=== PATIENT | male | born 1940 | race Caucasian/White ===

== ENCOUNTER 2018-01-22 07:59 | Inpatient (IN) | payer MEDICARE ==
--- NOTE | 2018-01-09 15:03 | HP ---
AMENDED REPORT NOW INCLUDES COSIGNER DESIGNAION - ESIGNED BEFORE ADJUSTMENTS HISTORY AND PHYSICAL: DATE OF SURGERY: 01/22/18 DATE OF HISTORY AND PHYSICAL: 01/09/18 SURGEON: Dr. Maame Shook.* (DICTATED BY KENNETH HOPPER) PROCEDURE: Right total hip arthroplasty. CHIEF COMPLAINT: Right hip pain. HISTORY OF PRESENT ILLNESS: Mr. Hull is a 77-year-old gentleman with severe endstage arthritis in the right hip. He has failed conservative treatment with antiinflammatories, pain medication, intraarticular injection, and physical therapy. He would like to proceed with a right total hip arthroplasty and has discussed the procedure in the past with Dr. Shook. He follows up today for a history and physical for the same. He has been cleared by his neurologist as he has Parkinson's disease and he has also been cleared by his PCP pending his cardiology clearance. Cardiology has done an echocardiogram as well as an EKG and he is scheduled for a stress test on 01/15/18 for cardiac clearance. When we receive this information, he will be officially cleared. PAST MEDICAL HISTORY: Right hip osteoarthritis, Parkinson disease, hypertension , hyperlipidemia, dyspnea, aortic valve stenosis, CAD with two stents, dysphagia , GERD, and erectile dysfunction. PAST SURGICAL HISTORY: Includes stenting x2, cataract surgery and bursal I and D x2. MEDICATIONS: 1. Vitamin B12 at 1000 mcg daily. 2. Ferrous gluconate 240 mg daily. 3. Atorvastatin 80 mg half a tablet daily. 4. Triamcinolone acetonide 0.1% b.i.d. 5. Aspirin 81 mg daily. 6. Pramipexole hydrochloride 1 mg t.i.d. 7. Clopidogrel 75 mg daily. 8. Amantadine HCl 15 mg/5 mL 1 teaspoon daily. 9. Isosorbide mononitrate ER 60 mg daily. 10. Carbidopa/levodopa/entacapone 25/100/200 mg 1 t.i.d. 11. Multivitamin. 12. Nitrostat 0.4 mg 1 sublingual as need for chest pain. 13. Furosemide 20 mg daily. 14. Klor-Con 10 mEq every day. 15. Gabapentin 300 mg 2 tabs by mouth at night. 16. Carbidopa/levodopa ER 25/100 mg 1 tablet at night for restless leg syndrome. 17. Pantoprazole sodium 40 mg twice daily. 18. Oxycodone/acetaminophen 5/325 one to two tablets every 8 hours as needed for pain. 19. Dulcolax 100 mg twice daily as needed for constipation. ALLERGIES: SULFA medication and HYDROCHLOROTHIAZIDE. FAMILY HISTORY: Father with prostate cancer, [place], hyperlipidemia, and hypertension. Mother with hypertension. SOCIAL HISTORY: He is a nonsmoker, never smoker. He drinks alcohol socially and he denies any illicit drug use. REVIEW OF SYSTEMS: Patient endorses his presenting complaint as outlined in the HPI as well as numbness at the tips of his fingers on occasion, otherwise a 12- point system review was grossly negative. PHYSICAL EXAMINATION GENERAL: Well-nourished, well-developed, in no acute distress, alert and oriented x3. He has some difficulty sitting still. He is ambulating with the use of a walker. VITAL SIGNS: Height 69 inches, weight 173 pounds. Pulse 94, blood pressure sitting 118/70, respirations 16, temperature 98.3, BMI 25.5. HEENT: Normocephalic, atraumatic. Pupils equally round and reactive to light and accommodation. Extraocular movements intact. NECK: Supple. No palpable cervical lymph nodes. Thyroid is smooth and nontender. PULMONARY: Lungs clear to auscultation bilaterally with no wheezes, rales or rhonchi. CARDIAC: Regular rate and rhythm with a notable S1 murmur. 2+ DP pulses bilaterally. MUSCULOSKELETAL: Right lower extremity, patient's skin is intact with no abrasions or open wounds. He has no tenderness to palpation of the hip. No masses or lymph nodes. Hip flexion to 90 degrees with severe groin pain, internal rotation to 0 degrees, external rotation to 20 degrees with pain in the groin. He can actively flex and abduct through this and has 4/5 strength with flexion and abduction. Distally no edema or varicosities, there is 5/5 dorsiflexion and plantarflexion which is equal bilaterally. Full sensation to light touch in all nerve distributions, 2+ palpable DP pulse. LABORATORY DATA: No new x-rays were obtained today. IMPRESSION: Severe endstage osteoarthritis of the right hip. PLAN/RECOMMENDATIONS: Mr. Hull is scheduled to undergo a right total hip replacement with Dr. Maame Shook on 01/22/18 pending clearance from his personal secretary. He will return to clinic 14 days postop for followup and suture removal. Prescription for pain medication will be prescribed to patient's pharmacy on record on discharge from hospital. He will use Coumadin for DVT prophylaxis. We discussed today that he would need to discuss with this personal secretary when to stop his Plavix as well as his aspirin and he will have the personal secretary reach out to us and let us know about this. All questions were answered today. KENNETH HOPPER [id number]/[facility] #: [id number] DIMITRIOS
[~2018-01-22 07:59] MED LIST: Buffered Lidocaine 0.9% SYRIN* 5 ML/SYR SYRINGE INTRADERM ONE; Sodium Citrate/Citric Acid* 15 ML UDC PO ONE
[2018-01-22] MEDS ORDERED: Sodium Citrate/Citric Acid* 15 ML UDC ONE (08:29)
[2018-01-22] MEDS ORDERED: ceFAZolin 2 GM PREMIX (*) 2 GM/50 ML BAG IVPB ONE (08:29)
[2018-01-22] MEDS ORDERED: fentaNYL* 50 MCG/ML 5 ML VIAL (250 MCG VIAL) ONE (10:09)
[2018-01-22] MEDS ORDERED: Phenylephrine INJ* 10 MG/ML 1 ML VIAL (10 MG) ONE (10:10)
[2018-01-22] MEDS ORDERED: Propofol* 10 MG/ML 20 ML BTL IV PUSH ONE (10:10)
[2018-01-22] MEDS ORDERED: Rocuronium* 10 MG/ML VIAL ONE (10:10)
[2018-01-22] MEDS ORDERED: Etomidate* 2 MG/ML 10 ML VIAL ONE (10:10)
[2018-01-22] MEDS ORDERED: EPHEDrine (Pressors)* 50 MG/ML VIAL ONE (10:10)
[2018-01-22] MEDS ORDERED: Naloxone* 0.4 MG/ML 1 ML VIAL IV PRN (10:14)
[2018-01-22] MEDS ORDERED: fentaNYL* 50 MCG/ML 2 ML VIAL (100 MCG VIAL) IV PRN (10:14)
[2018-01-22] MEDS ORDERED: Acetaminophen IV 1GM/100ML * 1,000 MG/100 ML VIAL IVPB ONE (10:14)
[2018-01-22] MEDS ORDERED: PROCHLORPERAZINE INJ 5 MG/ML 2 ML VIAL IV PRN (10:14)
[2018-01-22] MEDS ORDERED: Ondansetron INJ* 2 MG/ML VIAL IV PRN (10:14)
[2018-01-22] MEDS ORDERED: HYDROmorphone INJ* 1 MG/ML CARPUJECT SYRINGE IV PRN (10:14)
[2018-01-22] MEDS ORDERED: Glycopyrrolate IV* 0.2 MG/ML 1 ML VIAL ONE (12:41)
[2018-01-22] MEDS ORDERED: Neostigmine Methylsulfate* 1 MG/ML 10 ML VIAL (1 mg/ml) ONE (12:41)
[2018-01-22] MEDS ORDERED: Ketorolac INJ* 30 MG/ML 1 ML VIAL ONE (13:26)
[2018-01-22] MEDS ORDERED: Acetaminophen TAB* 325 MG PO PRN (13:41)
[2018-01-22] MEDS ORDERED: Ondansetron 40 MG VIAL* 2 MG/ML 20 ML VIAL IV PRN (13:41)
[2018-01-22] MEDS ORDERED: Bisacodyl SUPP* 10 MG SUPP PR PRN (13:41)
[2018-01-22] MEDS ORDERED: Polyethylene Glycol 3350* 17 GM PACKET PO PRN (13:41)
[2018-01-22] MEDS ORDERED: oxyCODONE TAB* 5 MG TAB PO PRN ×2 (13:41→18:51)
[2018-01-22] MEDS ORDERED: Cyclobenzaprine TAB* 10 MG PO PRN (13:41)
[2018-01-22] MEDS ORDERED: Ondansetron TAB* 4 MG PO PRN (13:41)
[2018-01-22] MEDS ORDERED: oxyCODONE/Acetamin 5/325 MG* TAB PO PRN ×2 (13:41)
[2018-01-22] MEDS ORDERED: Magnesium Hydroxide LIQ* 30 ML UDC PO PRN (13:41)
[2018-01-22] MEDS ORDERED: diPHENhydraMINE IV* 50 MG/ML 1 ml VIAL (BENADRYL) IV PRN (13:41)
[2018-01-22] MEDS ORDERED: Morphine VIAL* 4 MG/ML VIAL (1 ml vial) IV PRN ×2 (13:41→17:57)
[2018-01-22] MEDS ORDERED: fentaNYL* 50 MCG/ML 2 ML VIAL (100 MCG VIAL) ONE (13:45)
[2018-01-22] MEDS ORDERED: HYDROmorphone INJ* 2 MG/ML CARPUJECT SYRINGE ONE (13:45)
[2018-01-22] MEDS ORDERED: Nitroglycerin TAB 0.4 MG* 0.4 MG TAB SL PRN (13:48)
[2018-01-22] MEDS ORDERED: Gabapentin CAP(*) 300 MG PO PRN (13:48)
[2018-01-22] MEDS ORDERED: diPHENhydraMINE IV* 50 MG/ML 1 ml VIAL (BENADRYL) ONE (13:53)
[2018-01-22] MEDS ORDERED: ceFAZolin 1 GM in Dextrose (*) 1 GM/50 ML BAG IVPB SCH (14:00)
[2018-01-22] MEDS: Carbidopa/Levodop 25/100 MG TAB(*) PO SCH ×2 (14:31→20:34)
--- NOTE | 2018-01-22 15:33 | RAD ---
HISTORY: Status post right hip arthroplasty COMPARISONS: None relevant VIEWS: 3, Frontal view of the pelvis with frontal and crosstable lateral views of the right hip FINDINGS: BONE DENSITY: Normal. BONES: The patient is status post right hip arthroplasty. There is no hardware failure or osteolysis. JOINTS: The patient is status post right hip arthroplasty. There is moderate osteoarthritis of left hip and SI joints. ALIGNMENT: There is no dislocation. SOFT TISSUES: Unremarkable. OTHER FINDINGS: None. IMPRESSION: STATUS POST RIGHT HIP ARTHROPLASTY
[2018-01-22] MEDS ORDERED: Acetaminophen IV 1GM/100ML * 100 ML ONE (16:26)
[2018-01-22] MEDS: Pramipexole TAB* 0.5 MG PO SCH ×2 (16:59→20:34)
[2018-01-22] MEDS: Atorvastatin* 40 MG TAB PO SCH (17:53)
[2018-01-22] MEDS: ceFAZolin 1 GM in Dextrose (*) 1 GM/50 ML BAG IVPB SCH (18:26)
[2018-01-22] MEDS: Magnesium Hydroxide LIQ* 30 ML UDC PO SCH (20:34)
[2018-01-22] MEDS: Ferrous Gluconate TAB* 324 MG TAB PO SCH (20:34)
[2018-01-22] MEDS: Docusate CAP* 100 MG PO SCH (20:34)
[2018-01-22] MEDS: Acetaminophen TAB* 325 MG PO SCH (22:57)
--- NOTE | 2018-01-23 01:35 | CONS ---
[facility] MEDICINE CONSULTATION REPORT: DATE OF ADMISSION: 01/22/18 DATE OF CONSULT: 01/22/18 PROVIDER: Balbir Darling NP ATTENDING PHYSICIAN: Dr. Shook. CONSULTING PHYSICIAN: Dr. Annika Torres (dictated by Balbir Darling NP). REASON FOR CONSULT: Comorbid medical conditions. HISTORY OF PRESENT ILLNESS: Mr. Hull is a 77-year-old gentleman who carries a past medical history of osteoarthritis, Parkinson's disease, hypertension, hyperlipidemia, aortic valve stenosis, coronary artery disease with stenting, dysphagia, GERD, and erectile dysfunction, who presented to [facility] for an elective right total hip arthroplasty with Dr. Shook. Mr. Hull has a longstanding history of severe end-stage arthritis in the right hip. He failed conservative treatment with anti-inflammatories, pain medications, and intraarticular injections as well as physical therapy and elected to have an elective right total hip arthroplasty. Postoperatively, the patient is drowsy. He is confused. He is having some visual hallucinations, but is able to answer questions at times appropriately. He denies any recent shortness of breath or chest pain. Denies any nausea, vomiting, or diarrhea. Denies any abdominal pain. PAST MEDICAL HISTORY: 1. Osteoarthritis. 2. Parkinson's disease. 3. Hypertension. 4. Hyperlipidemia. 5. Aortic valve stenosis. 6. Coronary artery disease with stenting. 7. Dysphagia. 8. GERD. 9. Erectile dysfunction. PAST SURGICAL HISTORY: 1. Cataract surgery. 2. Cardiac stents x1. ALLERGIES: The patient is allergic to SULFA and HYDROCHLOROTHIAZIDE. FAMILY HISTORY: Father with prostate cancer, [place], and hyperlipidemia, as well as hypertension. Mother with hypertension. SOCIAL HISTORY: The patient is a nonsmoker. Never smoked. He does drink alcohol occasionally. Denies any illicit drug use. REVIEW OF SYSTEMS: General: There is no fever. He denies any chills. Denies any unintended weight loss. Cardiac: Denies chest pain or edema. Respiratory : Denies any cough, congestion, or respiratory distress. GI: Denies any nausea , vomiting, or diarrhea. : Denies any hematuria or dysuria. Neuro: Denies any focal weakness or sensory loss. Eyes: No visual complaints. ENT: He does report chronic dysphagia. Musculoskeletal: He does report some right hip pain. Skin: He does have a dry and intact dressing to the right hip. Psych: No depression or anxiety. PHYSICAL EXAM: Vital Signs: Blood pressure 122/64, heart rate was 84, respirations were 20, O2 saturation was 100%, temperature was 97.5. General: Mr. Hull is examined postoperatively in the PACU. He is drowsy. He is not currently in any distress. Neuro: He is confused with hallucinations at this time. He is able to move all extremities and sensation is intact in bilateral lower extremities. Pedal pulses are +2 bilaterally. Heart: S1, S2. There are no murmurs, rubs, or gallops. Lungs are clear to auscultation bilaterally. No accessory muscle use. There is good aeration. Abdomen is soft and nontender. Bowel sounds are positive x4. Extremities: There is no cyanosis or edema. Skin: The dressing is dry and intact to the right hip. DIAGNOSTIC STUDIES/LAB DATA: Laboratory data preoperatively, he had an echocardiogram performed on 01/05/18 which showed an ejection fraction at 60%. Aortic valve with moderate stenosis. IMPRESSION AND PLAN: Mr. Hull is a 77-year-old gentleman who carries a past medical history significant for Parkinson's, hyperlipidemia, hypertension, who presented to the hospital today for a right total hip arthroplasty with Dr. Shook in the immediate postoperative period. He is having some confusion and visual hallucinations. He is calm, resting on the bed. RECOMMENDATIONS: Our recommendations are as follows: 1. Status post right total hip arthroplasty, management per Orthopedics. I would recommend that we refrain from using heavy narcotics for pain treatment as this may increase his confusion. I would refrain from using Benadryl as well again as this may increase his confusion. 2. For his Parkinson's disease, I would continue his Sinemet as previously prescribed at home. 3. DVT prophylaxis is per Orthopedics. The patient does carry a history of DVT , so he will need to be placed on DVT prophylaxis. 4. Fluids, electrolytes, nutrition: He can resume a heart-healthy caffeine okay diet. 5. Code status: He is a full code. TIME SPENT: Time spent was approximately 45 minutes in consultation of this patient, more than half of that time was spent with the patient and his family at the bedside reviewing the events leading thus far to this hospitalization, performing physical exam, and reviewing my plan of care. I have discussed my plan of care with my attending, Dr. Annika Torres. She is in agreement with my plan. BALBIR DARLING, BUYER PLANNER [id number]/[facility] #: [id number] MTDD
[2018-01-23] MEDS: ceFAZolin 1 GM in Dextrose (*) 1 GM/50 ML BAG IVPB SCH ×2 (02:21→10:31)
[2018-01-23] MEDS: Acetaminophen TAB* 325 MG PO SCH ×4 (04:43→22:40)
[2018-01-23 05:11] LABS: Hematocrit 26 % (42-52); Hemoglobin 9.1 g/dl (14.0-18.0); Mean Platelet Volume 7.9 um3 (7.4-10.4); Platelet Count 133 10^3/ul (150-450)
[2018-01-23 05:15] LABS: INR 1.16 (0.77-1.02)
[2018-01-23 05:28] LABS: EGFR Non-African American 68.9 (>60)
[2018-01-23] MEDS ORDERED: Furosemide TAB* 20 MG PO SCH (09:00)
[2018-01-23] MEDS: Amantadine LIQ* 50 MG/5 ML UDC PO SCH (10:22)
[2018-01-23] MEDS: Magnesium Hydroxide LIQ* 30 ML UDC PO SCH ×2 (10:22→21:00)
[2018-01-23] MEDS: Potassium Chlor TAB* 10 MEQ TAB.ER PO SCH (10:24)
[2018-01-23] MEDS: Carbidopa/Levodop 25/100 MG TAB(*) PO SCH ×2 (10:24→14:29)
[2018-01-23] MEDS: Pramipexole TAB* 0.5 MG PO SCH ×3 (10:26→21:00)
[2018-01-23] MEDS: CMC:Pantoprazole TAB (NF) 40 MG TAB PO SCH (10:26)
[2018-01-23] MEDS: Docusate CAP* 100 MG PO SCH ×2 (10:26→21:00)
[2018-01-23] MEDS: Ferrous Gluconate TAB* 324 MG TAB PO SCH ×2 (10:26→21:00)
[2018-01-23] MEDS: Isosorbide Mononitrate ER TAB* 60 MG PO SCH (10:26)
--- NOTE | 2018-01-23 10:54 | RAD ---
HISTORY: Right hip replacement COMPARISONS: None VIEWS: 1, portable intraoperative view of the pelvis during right hip arthroplasty FINDINGS: Limited single portable intraoperative view of the pelvis or hip arthroplasty performed at 12:48 PM demonstrates a right hip arthroplasty with a temporary femoral sizing component. IMPRESSION: LIMITED PORTABLE VIEW OF THE PELVIS DURING HIP ARTHROPLASTY
[2018-01-23] MEDS: Enoxaparin(*) 30 MG/0.3 ML SYR SUBCUT SCH (12:32)
--- NOTE | 2018-01-23 13:31 | PN ---
Progress Note - Progress Note Date of Service: 01/23/18 SOAP: Subjective: 77 y/o male s/p R STACEY 01/[address] Shook. Patient confused this AM, concerned about medications. + pain in hip, but less than pre-op patient believes, difficulty with raising hip. VSS, afebrile overnight. Objective: General- Well appearing, NAD, AO, resting comfortably in chair. MSK- R LE- DF/PF = b/l, PT 2+, negative homans sign, surgical dressing intact , no drainage noted, no induration, erythema. Vital Signs Temp 97.6 F 01/23/18 11:30 Pulse 78 01/23/18 11:30 Resp 18 01/23/18 11:30 BP 82/40 01/23/18 12:32 Pulse Ox 99 01/23/18 11:30 Intake & Output 01/22/18 01/23/18 01/23/18 18:59 06:59 18:59 Intake Total 2050 200 Output Total 950 575 100 Balance 1100 -375 -100 Weight 97.976 kg Intake: IV Fluids 0 NS 50ML, Cefazolin 2G 50 lr 2000 Oral 200 Output: Urine 100 Jackman 700 575 Estimated Blood Loss 250 Assessment: Stable 77 y/o male s/p R STACEY 01/[address] Shook. Plan: - DVT prophylaxis- lovenox, coumadin. Message to PCP re: stopping plavix, coumadin- awaiting response. - Continue PT/ OT - Follow up with Dr. Shook within 10-14 days - H&H - stable - post-op IV ABX - running - Medications verified. - PMRU consult in, likely rehab due to parkinsons. Acetaminophen (Tylenol Tab*) 975 mg PO Q6H [facility] Last Admin: 01/23/18 10:27 Dose: 975 mg Amantadine HCl (Symmetrel Liq*) 50 mg PO QAM [facility] Last Admin: 01/23/18 10:22 Dose: 50 mg Atorvastatin Calcium (Lipitor*) 40 mg PO QPM [facility] Last Admin: 01/22/18 17:53 Dose: Not Given Bisacodyl (Dulcolax Supp*) 10 mg NC DAILY PRN PRN Reason: constipation Carbidopa/Levodopa (Sinemet 25/100 Tab(*)) 1 tab PO TID [facility] Last Admin: 01/23/18 10:24 Dose: 1 tab Carbidopa/Levodopa (Sinemet 25/100 Tab(*)) 1 tab PO BEDTIME [facility] Cyclobenzaprine HCl (Flexeril Tab*) 10 mg PO TID PRN PRN Reason: SPASMS Last Admin: 01/23/18 03:06 Dose: 10 mg Docusate Sodium (Colace Cap*) 100 mg PO BID [facility] Last Admin: 01/23/18 10:26 Dose: 100 mg Enoxaparin Sodium (Lovenox(*)) 30 mg SUBCUT Q24H [facility] Last Admin: 01/23/18 12:32 Dose: 30 mg Entacapone (Comtan(Nf)) 200 mg PO TID [facility] Ferrous Gluconate (Fergon Tab*) 324 mg PO BID [facility] Last Admin: 01/23/18 10:26 Dose: 324 mg Furosemide (Lasix Tab*) 20 mg PO MoWeFr@0900 [facility] Last Admin: 01/23/18 10:23 Dose: 20 mg Gabapentin (Neurontin Cap(*)) 600 mg PO BEDTIME PRN PRN Reason: PAIN Last Admin: 01/22/18 20:37 Dose: 600 mg Lactated Ringer's (Lactated Ringers 1000 Ml Bag*) 1,000 mls @ 100 mls/hr IV PER RATE [facility] Last Admin: 01/23/18 03:53 Dose: 100 mls/hr Isosorbide Mononitrate (Imdur Er Tab*) 60 mg PO DAILY [facility] Last Admin: 01/23/18 10:26 Dose: 60 mg Lactulose (Lactulose*) 30 ml PO Q6H PRN PRN Reason: constipation Magnesium Hydroxide (Milk Of Magnesia Liq*) 30 ml PO BID [facility] Last Admin: 01/23/18 10:22 Dose: 30 ml Magnesium Hydroxide (Milk Of Magnesia Liq*) 30 ml PO Q6H PRN PRN Reason: constipation Nitroglycerin (Nitroglycerin Tab 0.4 Mg*) 0.4 mg SL Q5M PRN PRN Reason: CHEST PAIN Ondansetron HCl (Zofran 40 Mg Vial*) 4 mg IV Q6H PRN PRN Reason: nausea Ondansetron HCl (Zofran Tab*) 4 mg PO Q6H PRN PRN Reason: NAUSEA Oxycodone HCl (Roxycodone Tab*) 5 mg PO Q4H PRN PRN Reason: PAIN - MODERATE TO SEVERE Last Admin: 01/22/18 20:34 Dose: 5 mg Pantoprazole Sodium (Protonix Tab (Nf)) [facility] [place] Admin: 01/23/18 10:26 Dose: 40 mg Polyethylene Glycol/Electrolytes (Miralax*) 17 gm PO DAILY PRN PRN Reason: Constipation Potassium Chloride (Klor Con Er Tab*) 10 meq [place] [facility] [place] Admin: 01/23/18 10:24 Dose: 10 meq Pramipexole Dihydrochloride (Mirapex Tab*) 1 mg PO TID [facility] Last Admin: 01/23/18 10:26 Dose: 1 mg
[2018-01-23] MEDS ORDERED: ENTACAPONE 200 MG PO SCH (14:00)
[2018-01-23 16:52] LABS: ABS Basophils 0 10^3/ul (0-0.2); ABS Eosinophils 0.1 10^3/ul (0-0.6); ABS Lymphocytes 0.6 10^3/ul (1.0-4.8); ABS Monocytes 0.4 10^3/ul (0-0.8); ABS Neutrophils 5.1 10^3/ul (1.5-7.7); ABS Nucleated RBC 0 10^3/ul; Eosinophil % 1.9 % (0-6); Hematocrit 28 % (42-52); Hemoglobin 9.5 g/dl (14.0-18.0); Lymphocyte % 9.6 % (25-47); Mean Corpuscular HGB Conc 34 g/dl (31-36); Mean Corpuscular Hemoglobin 32 pg (27-31); Mean Corpuscular Volume 94 fL (80-94); Mean Platelet Volume 7.8 um3 (7.4-10.4); Nucleated Red Blood Cells % 0; Platelet Count 131 10^3/ul (150-450); Red Blood Count 2.94 10^6/ul (4.0-5.4); Red Cell Distribution Width 14 % (10.5-15); White Blood Count 6.2 10^3/ul (3.5-10.8)
--- NOTE | 2018-01-23 17:00 | RAD ---
INDICATION: Right hip pain and hypotension COMPARISON: Chest x-ray dated January 09, 2018 TECHNIQUE: Single AP portable view of the chest was obtained. FINDINGS: Image quality is compromised due to the relative inferiority of a portable chest x-ray. The heart and mediastinum exhibit normal size and contour. The lungs are grossly clear. There is no evidence of a large pleural effusion. Visualized bones are normal for the patient's age. IMPRESSION: No radiographic evidence for acute cardiopulmonary abnormality on this portable chest x-ray.
[2018-01-23 17:08] LABS: EGFR Non-African American 69.7 (>60)
[2018-01-23] MEDS: Atorvastatin* 40 MG TAB PO SCH (17:43)
--- NOTE | 2018-01-23 18:13 | PN ---
Hospitalist Progress Note Date of Service: 01/23/18 Pt seen and examined in AM and spoke with Dr. Marsh and mentioned that pt may have chorea like symptoms, now resolved. PD meds were adjusted. Meds and labs reviewed. Pt also had mild hypotension being addressed by orthopedic department with IVF therapy, which he has since responded to upon review of most recent VS at the writing of this note. RN also mentions pt has not urinated much since louise was D/Cd. Asked RN to replace louise and ~1L of urine was collected. ROS: Denied ABBOTT/dizziness, F/C, N/V, CP, SOB, increased cough, sputum production , abd pain, diarrhea, constipation, myalgias, arthralgias, throat pain, and new skin lesions. The rest of the 14 point ROS are unremarkable. PHYSICAL EXAM: GEN APPEARANCE: Awake, not in acute distress, weak appearing HEENT: NC/AT, PERRLA, moist oral mucosa, (-) throat erythema NECK: Soft, supple, (-) cervical LAD, (-)JVD HEART: S1S2 WNL, RRR, No MRG CHEST: CTA, BL, GAE, No W/R/R ABD: Soft, ND/NT, NABS 4x Q EXT: No C/C/E SKIN: Warm to touch PSYCH: No active psychosis, hallucinations, depression, SI/HI ASSESSMENT AND PLAN: #Hypotension: -Possibly due to polypharmacy interactionplease see Dr. Melendez note for details -Pt only reported to have 150cc of intraoperative blood loss -CBC, CMP, and CXR were reassuring and does not suggest an infectious process ; U/A pending; blood cultures ordered -Continue IVF -May also be complicated by urinary retention #S/P right total hip arthroplasty: -Defer further recommendations with orthopedic team #Urinary retention: -Continue louise for now; may D/C in 2-3 days #CAD: -ASA and Plavix being helddefer to PCP per ortho -Continue statins #PD: -Continue Carbidopa/Levodopa #DVT: -Continue Lovenox SQ, at lower dose #Dispo: -Defer with PTlikely will need rehab due to parkinsonian symptoms now improving -Continue to observe
[2018-01-23 18:24] LABS: Urine Appearance Clear; Urine Blood 2+ (Negative); Urine Color Yellow; Urine Ketones Negative (Negative); Urine Protein Negative (Negative); Urine Specific Gravity 1.009 (1.010-1.030); Urine Urobilinogen Negative (Negative)
[2018-01-23] MEDS ORDERED: STALEVO PO SCH (21:00)
[2018-01-23] MEDS: LEVODOPA PO SCH (21:00)
[2018-01-23] MEDS: CARBIDOPA PO SCH (21:00)
[2018-01-24] MEDS: Acetaminophen TAB* 325 MG PO SCH ×4 (03:55→21:52)
[2018-01-24 05:59] LABS: INR 1.3 (0.77-1.02)
[2018-01-24 06:02] LABS: Hematocrit 25 % (42-52); Hemoglobin 8.7 g/dl (14.0-18.0); Mean Corpuscular HGB Conc 34 g/dl (31-36); Mean Corpuscular Hemoglobin 33 pg (27-31); Mean Corpuscular Volume 95 fL (80-94); Red Blood Count 2.66 10^6/ul (4.0-5.4); Red Cell Distribution Width 14 % (10.5-15)
[2018-01-24 06:03] LABS: ABS Basophils 0 10^3/ul (0-0.2); ABS Eosinophils 0.2 10^3/ul (0-0.6); ABS Lymphocytes 0.7 10^3/ul (1.0-4.8); ABS Monocytes 0.5 10^3/ul (0-0.8); ABS Neutrophils 8.6 10^3/ul (1.5-7.7)
[2018-01-24 06:10] LABS: EGFR Non-African American 76.5 (>60)
--- NOTE | 2018-01-24 06:10 | OP ---
OPERATIVE REPORT: DATE OF OPERATION: 01/22/18 DATE OF : 36 ATTENDING SURGEON: Maame Shook MD HOUSE WIRER HELPER: KENNETH Burgos Ms. did help throughout the procedure with preparation of the leg, wound retraction, manipul ation of the hip and wound closure. ANESTHESIOLOGIST: Dr. Marsh. ANESTHESIA: Spinal. 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 OPERATIVE PROCEDURE: Right total hip arthroplasty, abductor tendon primary repair. HARDWARE USED: This is uncemented [employer] total hip arthroplasty hardware. For the cup, a Trident T ritanium hemispherical shell 54E, single 20-mm screw and a single 50-mm screw. For the liner, a 42E MDM cementless liner. For the stem, Accolade TMZF size 3 with a 127-degree neck. For the head, Biol ox delta ceramic V40 femoral head 28 +0 and for the liner, a buddhism MDM X3 insert, 28/48/42E. COMPLICATIONS: None. ESTIMATED BLOOD LOSS: 300 cc. BRIEF HISTORY/INDICATION: Mr. Hull is a 77-year-old gentleman with chronically increasing severe frankie n in the right hip joint. He had visible avascular necrosis with [id number] contact on radiograph. He failed conservative treatment with anti-inflammatories, pain medications, ambulatory assistive d evices, and physical therapy. He elected to undergo right total hip arthroplasty due to continued pa in and decreased quality of life. Informed consent was obtained from the patient. He understood the risks of the surgery included, but were not limited to, bleeding, infection, damage to nearby struct ures, continued pain, need for further surgery, intraoperative fracture, nerve palsy, hardware failur e or loosening, dislocation, leg length discrepancy, stroke, heart attack, blood clot, and . He wished to proceed. DESCRIPTION OF PROCEDURE: Mr. Hull was identified in the preanesthesia unit. His right lower extrem ity was marked as the correct operative side. Informed consent was signed and placed in the chart. The patient was taken to the operating room and placed under spinal anesthesia. A Jackman catheter was placed. The patient was placed in the left lateral decubitus position on the pegboard. All bony pr ominences were well padded. Right lower extremity was prepped and draped in the usual sterile fashio n. Preop time-out was made to correctly identify the patient's side and site. Appropriate periopera tive antibiotics were given within 1 hour of incision. A 12 cm posterior hip incision was made with a 10-blade and carried down to the lateral fascial layer . The lateral fascial layer was incised in line with the skin incision. A Charnley retractor was p laced. There was a visible chronic tear of the abductor tendon off the greater trochanter. Electroc autery was used to elevate the piriformis and conjoined tendon. This was tagged with #5 Ethibond. El ectrocautery was then used to make a posterolateral capsular flap and this was also tagged with #5 Et hibond. The hip was carefully dislocated. The femoral head and neck region were extremely deformed and there was an actual fracture of the bone. Unclear whether this was from a fall, being a traumati c fracture or from chronic subchondral collapse from avascular necrosis. Oscillating saw was used to make the appropriate femoral neck cut. The femur was retracted anteriorly. After appropriate placement of retractors, the acetabulum was easily visualized. A long-handled knif e was used to remove any labrum from the rim of the acetabulum. Superolateral acetabulum was worn fro m chronic deformation of the femoral head likely. Acetabulum was sequentially reamed up to size 53. A bleeding subchondral bone bed was obtained. The 53 trial had good fit with some superolateral are a of the cup that was anticipated to be uncovered. This was also based on preop templating. Final i mplant chosen was a trident Tritanium hemispherical shell 54E. This was impacted into the acetabulum without difficulty. The shell was stable with appropriate anteversion and abduction angle. A single 15-mm and a single 20- mm screw were placed in the superior posterior quadrant for extra stability. The liner chosen was an [facility] cementless liner 42E. This was impacted into the acetabulum without dif ficulty. Stability of the liner was checked and rechecked and noted to be stable. Attention was next turned to preparation of the femur. A canal finder was used to enter the proximal femur. The proximal femur was sequentially broached up to a size 3. The size 3 broach had excellen t fit and appropriate anteversion. The 127 neck trial was chosen with the 28 +0 head trial and the a ppropriate insert. The hip was reduced and taken through a range of motion. The hip was stable in a ll positions with appropriate soft tissue tension and leg length. The hip was carefully dislocated. All trials were removed. Final implant chosen an Accolade TMZF size 3 with a 127-degree neck. This was impacted into the femoral canal. The stem was stable with appropriate anteversion. Biolox delt a ceramic V40 femoral head 28 +0 and a 28/48/42E buddhism MDM X3 insert was chosen. These were pr epared appropriately and impacted on to the femoral neck. The hip was reduced and taken through a ra nge of motion. The hip was stable in all positions with appropriate soft tissue tension and leg andreina th. The hip was copiously irrigated with sterile saline. A primary repair of the chronically torn abduct or tendon was performed using #5 Ethibond. Lateral fascial layer was closed using interrupted #1 Skyler ryls. The rest of the incision was closed in a layered fashion using 0 and 2-0 Vicryls. Skin was cl osed using running 3-0 Monocryl and Dermabond. Sterile Adaptic, 4x4's, and paper tape were used to c over the incision. The patient's anesthesia was reversed without difficulty. He was taken to the [facility] in stable condition. Intended weightbearing will be weightbearing as tolerated with posterior hip precautions. Intended DVT prophylaxis will be Coumadin with a Lovenox bridge. [id number]/[facility] #: [id number]
[2018-01-24 06:37] LABS: ABS Nucleated RBC 0 10^3/ul; Eosinophil % 1.5 % (0-6); Nucleated Red Blood Cells % 0.1
--- NOTE | 2018-01-24 08:43 | PN ---
Progress Note - Progress Note Date of Service: 01/24/18 SOAP: Subjective: Patient OOB to chair with minimal complaints of hip pain Objective: Vital Signs Temp Pulse Resp BP Pulse Ox 98.6 F 78 20 115/44 97 01/24/18 03:31 01/24/18 03:31 01/24/18 03:31 01/24/18 03:31 01/24/18 03:31 Laboratory Last Values WBC 10.0 10^3/ul (3.5-10.8) 01/24/18 05:18 RBC 2.66 10^6/ul (4.0-5.4) L 01/24/18 05:18 Hgb 8.7 g/dl (14.0-18.0) L 01/24/18 05:18 Hct 25 % (42-52) L 01/24/18 05:18 MCV 95 fL (80-94) H 01/24/18 05:18 MCH 33 pg (27-31) H 01/24/18 05:18 MCHC 34 g/dl (31-36) 01/24/18 05:18 RDW 14 % (10.5-15) 01/24/18 05:18 Plt Count 10^3/ul (150-450) 01/24/18 05:18 MPV Not Reportable 01/24/18 05:18 Neut % (Auto) 86.0 % (38-83) H 01/24/18 05:18 Lymph % (Auto) 7.0 % (25-47) L 01/24/18 05:18 [place] % (Auto) 5.2 % (0-7) 01/24/18 05:18 Eos % (Auto) 1.5 % (0-6) 01/24/18 05:18 Baso % (Auto) 0.3 % (0-2) 01/24/18 05:18 Absolute Neuts (auto) 8.6 10^3/ul (1.5-7.7) H 01/24/18 05:18 Absolute Lymphs (auto) 0.7 10^3/ul (1.0-4.8) L 01/24/18 05:18 Absolute Monos (auto) 0.5 10^3/ul (0-0.8) 01/24/18 05:18 Absolute Eos (auto) 0.2 10^3/ul (0-0.6) 01/24/18 05:18 Absolute Basos (auto) 0 10^3/ul (0-0.2) 01/24/18 05:18 Absolute Nucleated RBC 0 10^3/ul 01/24/18 05:18 Nucleated RBC % 0.1 01/24/18 05:18 INR (Anticoag Therapy) 1.30 (0.77-1.02) H 01/24/18 05:18 Sodium 134 mmol/L (139-145) L 01/24/18 05:18 Potassium 4.3 mmol/L (3.5-5.0) 01/24/18 05:18 Chloride 105 mmol/L (101-111) 01/24/18 05:18 Carbon Dioxide 24 mmol/L (22-32) 01/24/18 05:18 Anion Gap 5 mmol/L (2-11) 01/24/18 05:18 BUN 12 mg/dL (6-24) 01/24/18 05:18 Creatinine 0.95 mg/dL (0.67-1.17) 01/24/18 05:18 Est GFR ( Amer) 98.4 (>60) 01/24/18 05:18 Est GFR (Non-Af Amer) 76.5 (>60) 01/24/18 05:18 BUN/Creatinine Ratio 12.6 (8-20) 01/24/18 05:18 Glucose 133 mg/dL (70-100) H 01/24/18 05:18 Calcium 8.2 mg/dL (8.6-10.3) L 01/24/18 05:18 Phosphorus 2.0 mg/dL (2.5-5.0) L 01/24/18 05:18 Magnesium 2.2 mg/dL (1.9-2.7) 01/24/18 05:18 Total Bilirubin 0.50 mg/dL (0.2-1.0) 01/24/18 05:18 AST 52 U/L (13-39) H 01/24/18 05:18 ALT 13 U/L (7-52) 01/24/18 05:18 Alkaline Phosphatase 72 U/L (34-104) 01/24/18 05:18 Total Protein 5.3 g/dL (6.4-8.9) L 01/24/18 05:18 Albumin 2.9 g/dL (3.2-5.2) L 01/24/18 05:18 Globulin 2.4 g/dL (2-4) 01/24/18 05:18 Albumin/Globulin Ratio 1.2 (1-3) 01/24/18 05:18 Urine Color Yellow 01/23/18 18:11 Urine Appearance Clear 01/23/18 18:11 Urine pH 7.0 (5-9) 01/23/18 18:11 Ur Specific [place] 1.009 (1.010-1.030) L 01/23/18 18:11 Urine Protein Negative (Negative) 01/23/18 18:11 Urine Ketones Negative (Negative) 01/23/18 18:11 Urine Blood 2+ (Negative) A 01/23/18 18:11 Urine Nitrate Negative (Negative) 01/23/18 18:11 Urine Bilirubin Negative (Negative) 01/23/18 18:11 Urine Urobilinogen Negative (Negative) 01/23/18 18:11 Ur Leukocyte Esterase Negative (Negative) 01/23/18 18:11 Urine WBC (Auto) Absent (Absent) 01/23/18 18:11 Urine RBC (Auto) 2+(6-10/hpf) (Absent) A 01/23/18 18:11 Urine Bacteria Absent (Absent) 01/23/18 18:11 Urine Glucose Negative (Negative) 01/23/18 18:11 incision: c/d; dressing change PE: able to dorsi flex/plantar flex, 2+ DP, intact sensation Assessment: s/p right STACEY- 01/22 Plan: 1) PT/OT- WBAT 2) Lovenox/ SCD's for DVT prophylaxis 3) PMRU consult placed and waiting to hear about rehab placement 4) Hospitalist co-managing
[2018-01-24] MEDS: Magnesium Hydroxide LIQ* 30 ML UDC PO SCH ×2 (08:50→19:50)
[2018-01-24] MEDS: Isosorbide Mononitrate ER TAB* 60 MG PO SCH (08:50)
[2018-01-24] MEDS: Pramipexole TAB* 0.5 MG PO SCH ×4 (08:57→17:58)
[2018-01-24] MEDS: Ferrous Gluconate TAB* 324 MG TAB PO SCH ×2 (08:57→20:06)
[2018-01-24] MEDS: Docusate CAP* 100 MG PO SCH ×2 (08:57→20:06)
[2018-01-24] MEDS: Amantadine LIQ* 50 MG/5 ML UDC PO SCH (08:57)
[2018-01-24] MEDS: Potassium Chlor TAB* 10 MEQ TAB.ER PO SCH (08:57)
[2018-01-24] MEDS: STALEVO PO SCH ×3 (08:58→17:58)
[2018-01-24] MEDS: CMC:Pantoprazole TAB (NF) 40 MG TAB PO SCH (08:58)
[2018-01-24] MEDS: Enoxaparin(*) 30 MG/0.3 ML SYR SUBCUT SCH (12:49)
--- NOTE | 2018-01-24 14:25 | PN ---
Hospitalist Progress Note Date of Service: 01/24/18 Pt seen and examined. Meds and labs reviewed. ROS: Denied ABBOTT/dizziness, F/C, N/V, CP, SOB, increased cough, sputum production , abd pain, diarrhea, constipation, dysuria, myalgias, arthralgias, throat pain , and new skin lesions. The rest of the 14 point ROS are unremarkable. PHYSICAL EXAM: GEN APPEARANCE: Awake, not in acute distress HEENT: NC/AT, PERRLA, moist oral mucosa, (-) throat erythema NECK: Soft, supple, (-) cervical LAD, (-)JVD HEART: S1S2 WNL, RRR, No MRG CHEST: CTA, BL, GAE, No W/R/R ABD: Soft, ND/NT, NABS 4x Q EXT: No C/C/E SKIN: Warm to touch PSYCH: No active psychosis, hallucinations, depression, SI/HI ASSESSMENT AND PLAN: #S/P right total hip arthroplasty: -Defer further recommendations with orthopedic team -WBAT #Urinary retention: -Continue louise for now; december D/C in 2-3 days #CAD: -ASA and Plavix being helddefer to PCP per ortho -Continue statins #PD: -Continue Carbidopa/Levodopa #Post-operative Hypotension and chorea-like activity, resolved: -Please see Dr. Silva note #DVT: -Continue Lovenox SQ, at lower dose #Dispo: -PMRU consult placed and awaiting bed/placement availability
[2018-01-24] MEDS ORDERED: Warfarin TAB(*) 6 MG PO SCH (17:00)
[2018-01-24] MEDS: Atorvastatin* 40 MG TAB PO SCH (17:57)
[2018-01-24] MEDS: LEVODOPA PO SCH (20:06)
[2018-01-24] MEDS: CARBIDOPA PO SCH (20:06)
[2018-01-25] MEDS: Acetaminophen TAB* 325 MG PO SCH ×2 (04:23→09:49)
[2018-01-25 06:59] LABS: Hematocrit 28 % (42-52); Hemoglobin 9.6 g/dl (14.0-18.0); Mean Platelet Volume 7.8 um3 (7.4-10.4); Platelet Count 166 10^3/ul (150-450)
[2018-01-25 07:12] LABS: INR 1.43 (0.77-1.02)
[2018-01-25] MEDS: Ferrous Gluconate TAB* 324 MG TAB PO SCH (09:10)
[2018-01-25] MEDS: Magnesium Hydroxide LIQ* 30 ML UDC PO SCH (09:10)
[2018-01-25] MEDS: Potassium Chlor TAB* 10 MEQ TAB.ER PO SCH (09:10)
[2018-01-25] MEDS: STALEVO PO SCH (09:11)
[2018-01-25] MEDS: Pramipexole TAB* 0.5 MG PO SCH (09:11)
[2018-01-25] MEDS: Isosorbide Mononitrate ER TAB* 60 MG PO SCH (09:12)
[2018-01-25] MEDS: Amantadine LIQ* 50 MG/5 ML UDC PO SCH (09:12)
[2018-01-25] MEDS: Docusate CAP* 100 MG PO SCH (09:12)
[2018-01-25] MEDS: CMC:Pantoprazole TAB (NF) 40 MG TAB PO SCH (09:13)
--- NOTE | 2018-01-25 10:01 | PN ---
Progress Note - Progress Note Date of Service: 01/25/18 SOAP: Subjective: OOB to chair with minimal hip pain Objective: Vital Signs Temp Pulse Resp BP Pulse Ox 98.1 F 73 16 132/48 99 01/25/18 07:53 01/25/18 07:53 01/25/18 07:53 01/25/18 07:53 01/25/18 07:53 Laboratory Last Values WBC 10.0 10^3/ul (3.5-10.8) 01/24/18 05:18 RBC 2.66 10^6/ul (4.0-5.4) L 01/24/18 05:18 Hgb 9.6 g/dl (14.0-18.0) L 01/25/18 06:41 Hct 28 % (42-52) L 01/25/18 06:41 MCV 95 fL (80-94) H 01/24/18 05:18 MCH 33 pg (27-31) H 01/24/18 05:18 MCHC 34 g/dl (31-36) 01/24/18 05:18 RDW 14 % (10.5-15) 01/24/18 05:18 Plt Count 166 10^3/ul (150-450) 01/25/18 06:41 MPV 7.8 um3 (7.4-10.4) 01/25/18 06:41 Neut % (Auto) 86.0 % (38-83) H 01/24/18 05:18 Lymph % (Auto) 7.0 % (25-47) L 01/24/18 05:18 Baker % (Auto) 5.2 % (0-7) 01/24/18 05:18 Eos % (Auto) 1.5 % (0-6) 01/24/18 05:18 Baso % (Auto) 0.3 % (0-2) 01/24/18 05:18 Absolute Neuts (auto) 8.6 10^3/ul (1.5-7.7) H 01/24/18 05:18 Absolute Lymphs (auto) 0.7 10^3/ul (1.0-4.8) L 01/24/18 05:18 Absolute Monos (auto) 0.5 10^3/ul (0-0.8) 01/24/18 05:18 Absolute Eos (auto) 0.2 10^3/ul (0-0.6) 01/24/18 05:18 Absolute Basos (auto) 0 10^3/ul (0-0.2) 01/24/18 05:18 Absolute Nucleated RBC 0 10^3/ul 01/24/18 05:18 Nucleated RBC % 0.1 01/24/18 05:18 INR (Anticoag Therapy) 1.43 (0.77-1.02) H 01/25/18 06:41 Sodium 134 mmol/L (139-145) L 01/24/18 05:18 Potassium 4.3 mmol/L (3.5-5.0) 01/24/18 05:18 Chloride 105 mmol/L (101-111) 01/24/18 05:18 Carbon Dioxide 24 mmol/L (22-32) 01/24/18 05:18 Anion Gap 5 mmol/L (2-11) 01/24/18 05:18 BUN 12 mg/dL (6-24) 01/24/18 05:18 Creatinine 0.95 mg/dL (0.67-1.17) 01/24/18 05:18 Est GFR ( Amer) 98.4 (>60) 01/24/18 05:18 Est GFR (Non-Af Amer) 76.5 (>60) 01/24/18 05:18 BUN/Creatinine Ratio 12.6 (8-20) 01/24/18 05:18 Glucose 133 mg/dL (70-100) H 01/24/18 05:18 Calcium 8.2 mg/dL (8.6-10.3) L 01/24/18 05:18 Phosphorus 2.0 mg/dL (2.5-5.0) L 01/24/18 05:18 Magnesium 2.2 mg/dL (1.9-2.7) 01/24/18 05:18 Total Bilirubin 0.50 mg/dL (0.2-1.0) 01/24/18 05:18 AST 52 U/L (13-39) H 01/24/18 05:18 ALT 13 U/L (7-52) 01/24/18 05:18 Alkaline Phosphatase 72 U/L (34-104) 01/24/18 05:18 Total Protein 5.3 g/dL (6.4-8.9) L 01/24/18 05:18 Albumin 2.9 g/dL (3.2-5.2) L 01/24/18 05:18 Globulin 2.4 g/dL (2-4) 01/24/18 05:18 Albumin/Globulin Ratio 1.2 (1-3) 01/24/18 05:18 Urine Color Yellow 01/23/18 18:11 Urine Appearance Clear 01/23/18 18:11 Urine pH 7.0 (5-9) 01/23/18 18:11 Ur Specific [place] 1.009 (1.010-1.030) L 01/23/18 18:11 Urine Protein Negative (Negative) 01/23/18 18:11 Urine Ketones Negative (Negative) 01/23/18 18:11 Urine Blood 2+ (Negative) A 01/23/18 18:11 Urine Nitrate Negative (Negative) 01/23/18 18:11 Urine Bilirubin Negative (Negative) 01/23/18 18:11 Urine Urobilinogen Negative (Negative) 01/23/18 18:11 Ur Leukocyte Esterase Negative (Negative) 01/23/18 18:11 Urine WBC (Auto) Absent (Absent) 01/23/18 18:11 Urine RBC (Auto) 2+(6-10/hpf) (Absent) A 01/23/18 18:11 Urine Bacteria Absent (Absent) 01/23/18 18:11 Urine Glucose Negative (Negative) 01/23/18 18:11 incision: c/d PE: NVI Assessment: s/p right STACEY- 01/22 Plan: 1) Lovenox/coumadin for DVT prophylaxis 2) PT/OT 3) PMRU transfer today after 11am
--- NOTE | 2018-01-25 11:46 | DS ---
DISCHARGE SUMMARY: DATE OF ADMISSION: 01/22/18 DATE OF DISCHARGE: 01/25/18 SURGEON: Maame Shook MD.* (DICTATED BY KENNETH COOK) PRINCIPAL DIAGNOSIS: Avascular necrosis of right hip. DISCHARGE DIAGNOSIS: Avascular necrosis of right hip. HOSPITAL COURSE: Mr. Hull is a 77-year-old gentleman with severe right hip secondary to avascular necrosis. He failed conservative management and elected to proceed with a right total hip arthroplasty, which was scheduled for 01/22/18. Mr. Hull was admitted electively to the hospital on 01/22/18 and underwent a right total hip arthroplasty. Postoperatively, he was placed on Lovenox and Coumadin for DVT prophylaxis. 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 His overall postoperative course was unremarkable. At the time of discharge on 01/25/18, he is afebrile and his vital signs are stable. His wound is clean and dry. He was transferred to [facility] for continued inpatient rehabilitation. DISCHARGE MEDICATIONS: 1. Amantadine 50 mg every morning. 2. Lipitor 40 mg every day. 3. Colace 100 mg tabs 2 to 3 tablets daily as needed. 4. Carbidopa/levodopa 25/100 one tab at bedtime. 5. Coumadin 2 mg tabs 6. Ferrous gluconate 324 mg twice a day. 7. Gabapentin 600 mg q. h.s. 8. Isosorbide mononitrate 60 mg daily. 9. Percocet 5/325 one to two tabs every 4 to 6 hours as needed for pain. 10. Protonix 40 mg daily. 11. Klor-Con 10 mEq daily. PHYSICAL EXAM UPON DISCHARGE: He was afebrile. Vital signs were stable. His wound was clean, dry, and he was distally neurovascularly intact. He was ambulating with a walker. DISCHARGE INSTRUCTIONS: He was transferred to [facility] for continued inpatient rehabilitation. While there we recommended Coumadin. For DVT prophylaxis, 8 mg of Coumadin was recommended for tonight. He should have his INR rechecked tomorrow. He can start showering starting Friday. Can let soap and water run over the incision, pat it area, re-dress with a clean dry dressing daily. He is weightbearing as tolerated. He will continue posterior hip precautions and Dr. Shook would like to see him back in clinic in 2 weeks. KENNETH COOK [id number]/[facility] #: [id number] [facility]ITALS[facility]
[2018-01-25] MEDS: Enoxaparin(*) 30 MG/0.3 ML SYR SUBCUT SCH (12:00)
[2018-01-25 12:05] VITALS: BP 105/48
[2018-01-25] MEDS ORDERED: Warfarin TAB(*) 4 MG PO ONE (17:00)
== END 2018-01-25 12:36 | DRG 470 ==
LOC: AA 07:59 → SSU 17:26
PROVIDERS: ADMIT Orthopaedic Surgery Adult Reconstructive Orthopaedic Surgery; ATTEND Orthopaedic Surgery Adult Reconstructive Orthopaedic Surgery
PROC: 0LQJ0ZZ Repair Right Hip Tendon, Open Approach (ICD-10-PCS; 2018-01-22)
PROC: 0SR904A Replacement of Right Hip Joint with Ceramic on Polyethylene Synthetic Substitute, Uncemented, Open Approach (ICD-10-PCS; principal; 2018-01-22 11:00)
DX: M16.11 Unilateral primary osteoarthritis, right hip (principal); J84.9 Interstitial pulmonary disease, unspecified; M87.851 Other osteonecrosis, right femur; M84.451A Pathological fracture, right femur, initial encounter for fracture; G20 Parkinson's disease; I10 Essential (primary) hypertension; E78.5 Hyperlipidemia, unspecified; I35.0 Nonrheumatic aortic (valve) stenosis; I25.10 Atherosclerotic heart disease of native coronary artery without angina pectoris; K21.9 Gastro-esophageal reflux disease without esophagitis; N52.9 Male erectile dysfunction, unspecified; G47.33 Obstructive sleep apnea (adult) (pediatric); N48.6 Induration penis plastica; R13.10 Dysphagia, unspecified; K59.00 Constipation, unspecified; I73.00 Raynaud's syndrome without gangrene; R06.00 Dyspnea, unspecified; S76.011A Strain of muscle, fascia and tendon of right hip, initial encounter; X58.XXXA Exposure to other specified factors, initial encounter; Z95.5 Presence of coronary angioplasty implant and graft; Z88.8 Allergy status to other drugs, medicaments and biological substances; Z88.2 Allergy status to sulfonamides; Z80.42 Family history of malignant neoplasm of prostate; Y92.9 Unspecified place or not applicable; Z82.49 Family history of ischemic heart disease and other diseases of the circulatory system; Z72.89 Other problems related to lifestyle; Z98.49 Cataract extraction status, unspecified eye; Z86.718 Personal history of other venous thrombosis and embolism; Z85.828 Personal history of other malignant neoplasm of skin; Z79.01 Long term (current) use of anticoagulants; R33.9 Retention of urine, unspecified; I95.81 Postprocedural hypotension; R44.1 Visual hallucinations; R41.0 Disorientation, unspecified
CPT/HCPCS: 36415; 71045; 80048; 80053; 81003; 81015; 83735; 84100; 85014; 85018; 85025; 85049; 85610; 87040; 88304; 88311; A9270-GY; C1713; C1776; G8978-GP-CL; G8978-GP-CN; G8979-GP-CJ; G8979-GP-CK; G8987-GO-CL; G8988-GO-CI; G8989-GO-CI; J0690; J1170; J1200; J1650; J1885; J2704; J2710; J3010

== ENCOUNTER 2018-01-25 08:50 | Inpatient (IN) | payer MEDICARE ==
[2018-01-25] MEDS ORDERED: Al Hydrox/Mg Hydrox/Simet LIQ* 30 ML UDC PO PRN (11:21)
[2018-01-25] MEDS ORDERED: Senna TAB PO PRN (11:21)
[2018-01-25] MEDS ORDERED: Magnesium Hydroxide LIQ* 30 ML UDC PO PRN (11:21)
[2018-01-25] MEDS ORDERED: Nitroglycerin TAB 0.4 MG* 0.4 MG TAB SL PRN (11:40)
[2018-01-25] MEDS: Enoxaparin(*) 30 MG/0.3 ML SYR SUBCUT SCH ×2 (12:58→13:46)
[2018-01-25] MEDS: Pramipexole TAB* 0.5 MG PO SCH ×2 (13:21→17:08)
[2018-01-25] MEDS: [UNRECOGNIZED DRUG - OTHER] PO SCH ×2 (13:23→17:09)
[2018-01-25] MEDS: CARBIDOPA PO SCH ×3 (13:23→21:04)
[2018-01-25] MEDS: LEVODOPA PO SCH ×3 (13:23→21:04)
--- NOTE | 2018-01-25 13:49 | HP ---
CC: Dr. Dozier; Dr. Shook * REHABILITATION ADMISSION NOTE: DATE OF ADMISSION: 01/25/18 PRIMARY CARE PROVIDER: Dr. Dozier. ORTHOPEDIC SURGEON: Dr. Shook. REASON FOR ADMISSION: Right total hip replacement secondary to avascular necrosis and Parkinson disease. HISTORY OF PRESENT ILLNESS: This is a 77-year-old man with Parkinson Disease who was admitted on 01/22/18 for elective right total hip replacement secondary to avascular necrosis. He has had longstanding right-sided hip pain. He reports it had been worsening in about the last few weeks leading up to his surgery after an episode where he lost his balance and hopped hard on his right leg 4 times. He did not fall, but after that was using a walker and really having a difficult time getting around. It was discovered intraoperatively that he had a subcapital femoral neck fracture. He was also known to have a chronic right hip abductor tendon tear. Therefore, not only did he have his right total hip replacement, but also abductor tendon repair. Postoperative day 1, he was hypotensive down to 76/40. This seemed to respond to IV fluids. He then was noted to have low urine output and when a catheter was placed, he had about a liter of urine come out. He was having increased choreiform movements and his medications for Parkinson's disease were adjusted for times of administration. He was also confused and hallucinating. He seemed to be improved on postop day 2, although acknowledges vivid dreams of himself moving around the room. A personal alarm was placed on him. His Jackman catheter was removed and he has been able to void. His blood pressure has remained within the normal range and his Parkinson's seems better controlled. He has acute postoperative anemia, but has not required any transfusions. He started Lovenox for DVT prophylaxis and on 01/24/18 also started Coumadin. His INR even before the first dose of Coumadin was 1.3 and he received 6 mg on 01/24/18. He notes that since he needed to use the walker more even before admission he has been having increasing right shoulder pain. He has had right shoulder pain for several years that he could normally pull on his arm to stretch it out. He is also known to have a biceps tendon tear. He has not been able to work out this pain , but denies any fall that would have otherwise injured his right shoulder. Prior to admission, he was independent with ADLs and ambulating using a rolling walker. With occupational therapy, he required a maximum amount of assistance x2 for lower body dressing and toileting. With physical therapy, he required a minimum amount of assistance for transferring and could ambulate with a moderate amount of assistance for 10 feet using a rolling walker. He has had a bowel movement already since surgery. PAST MEDICAL HISTORY: 1. Parkinson's disease. 2. Right hip avascular necrosis with osteoarthritis, status post right total hip replacement. See history of present illness. 3. Subcapital hip fracture was noted at the time of surgery. 4. Hypertension. 5. Hyperlipidemia. 6. Aortic valve stenosis. 7. Dyspnea. 8. Coronary artery disease, status post 2 stents. 9. Dysphagia. 10. GERD. 11. Erectile dysfunction. 12. Cataract surgery. 13. History of MRSA, I and D x2. 14. 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 MEDICATIONS: 1. Vitamin B12 of 1000 mcg daily. 2. Ferrous gluconate 324 mg b.i.d. 3. Atorvastatin 40 mg daily. 4. Triamcinolone 0.1% topically b.i.d. to his right hand as needed that he currently does not need. 5. Aspirin 81 mg daily is on hold until he is off Coumadin. 6. Pramipexole 1 mg t.i.d. 7. Plavix 75 mg daily, currently on hold until he is off Coumadin. 8. Amantadine 50 mg/5 cc 1 teaspoon daily, which currently he is getting 50 mg q.a.m. 9. Imdur ER 60 mg daily. 10. Stalevo 25/100/200 t.i.d. 11. Multivitamin daily. 12. Nitrostat 0.4 mg sublingual p.r.n. chest pain. 13. Lasix 20 mg q. Friday, Friday, Friday. 14. Klor-Con 10 mEq q. Friday, Friday, Friday. 15. Gabapentin 600 mg q.h.s. 16. Carbidopa/levodopa ER 25/100 q.h.s. 17. Protonix 40 mg q.a.m. 18. Docusate 100 mg b.i.d. 19. Tylenol 975 mg q.6 hours p.r.n. pain. 20. Lovenox 30 mg subcutaneously q.24 hours until INR is therapeutic. 21. Milk of magnesia p.r.n. 22. Oxycodone 5 mg q.4 hours p.r.n. pain. 23. Coumadin, he will receive 3 mg tonight. ALLERGIES: SULFA and HYDROCHLOROTHIAZIDE. FAMILY HISTORY: Father, prostate cancer, myocardial infarction, hyperlipidemia and hypertension. Mother, hypertension. SOCIAL HISTORY: He lives with his in [place], her name is Mary Lou, phone number is [phone]. She is his surrogate decision maker if he cannot make decisions for himself. He is retired from working at a [employer] in the [employer] department. He retired in 2004. No smoking. He may drink wine socially, but really does not drink much at all. He has 4 steps to enter his home which is 2 levels, but he stays on the first floor. He has enjoyed scuba diving and playing volleyball, but he cannot do that any longer. He now spends his time doing puzzles, working on the computer, reading, and is involved in 2 different choirs, singing. REVIEW OF SYSTEMS: See history of present illness and past medical history. Remainder of 13-system review is completed, no other significant findings. PHYSICAL EXAMINATION VITAL SIGNS: Temperature 98.1, pulse 73, respirations 16, oxygenation 99% on room air, blood pressure 132/48. GENERAL: Well developed, well nourished, appearing stated age. Mental status: Alert and oriented x3. He is appropriate. HEENT: Normocephalic, atraumatic. Oropharynx is clear. Moist mucous membranes. NECK: Supple. No lymphadenopathy. LUNGS: Clear to auscultation bilaterally. HEART: Regular rate and rhythm. ABDOMEN: Active bowel sounds. Soft, nontender, nondistended. EXTREMITIES: No clubbing, cyanosis, or edema. MUSCULOSKELETAL: He has functional range of motion of all of his major joints, but limited testing of the right hip and knee secondary to his recent surgery. In the right shoulder, he does have discomfort with shoulder abduction. More pain is present with active range of motion than passive range of motion. No specific tenderness to palpation. With internal and external rotation, he does get some referral down into his arm. Once again, this has been chronic for several years and is just irritated now as he is using the walker more. NEUROLOGICAL: Upper and lower extremity motor 5/5 bilaterally with limited testing of the right hip and knee secondary to his recent surgery. He does have some decreased sensation at the tip of his right great toe which was present before his surgery and does not appear to be worsening. LABORATORY DATA: Today, hemoglobin 9.6, hematocrit 28, platelets 166,000. INR 1.43. IMPRESSION: A 77-year-old man with Parkinson's disease, status post total hip replacement secondary to avascular necrosis. In surgery it was also discovered he had a right hip fracture. He will be admitted to [facility] so that he can return to independent living with his . PLAN: 1. Right total hip replacement and repair of abductor tendon tear. He will follow up with Dr. Shook 10 to 14 days postoperatively. Continue posterior hip precautions and weightbearing as tolerated. He is using primarily Tylenol for pain, but has oxycodone on an as needed basis. 2. Parkinson's disease. Continue with his current medications. He has his own Stalevo here. 3. History of urine retention postoperatively. His Jackman catheter has been out for 24 hours. Monitor for recurrence. 4. DVT prophylaxis. He is on Lovenox bridging to Coumadin. He will receive 3 mg Coumadin tonight and an INR daily until he is off Lovenox. Note, his INR was slightly elevated on 01/24/18 even before he received his first dose of Coumadin. Repeat complete metabolic panel tomorrow to check his liver function. 5. Acute postoperative anemia. Follow CBC. 6. Coronary artery disease, status post 2 stents. He is off aspirin and Plavix while he is on Coumadin. Continue with his Lipitor and Imdur. He has Nitrostat p.r.n. He will use Lasix and potassium every Friday, Friday, and Friday. 7. Gastroesophageal reflux disease. Continue Protonix. 8. Impaired mobility. He will be seen by Physical Therapy for bed mobility, transfer, gait, and stair training using a rolling walker. He will be educated on his hip precautions. 9. Impaired self-care. He will be seen by Occupational Therapy for ADL training and equipment evaluation. 10. Advance directives. He is a full code. His is his surrogate decision maker if he cannot make decisions for himself. Her name is Mary Lou Hull, phone number is [phone]. 18. Estimated length of stay is 7 to 10 days and then return to home. [id number]/[facility] #: [id number] D[facility]
[2018-01-25] MEDS ORDERED: Warfarin TAB(*) 3 MG PO SCH (17:00)
[2018-01-25] MEDS: Atorvastatin* 40 MG TAB PO SCH (17:03)
[2018-01-25] MEDS: oxyCODONE TAB* 5 MG TAB PO PRN (18:42)
[2018-01-25] MEDS ORDERED: Ferrous Gluconate TAB* 324 MG TAB PO SCH (20:00)
[2018-01-25] MEDS: Docusate CAP* 100 MG PO SCH (21:03)
[2018-01-25] MEDS: Gabapentin CAP(*) 300 MG PO SCH (21:03)
[2018-01-26] MEDS: oxyCODONE TAB* 5 MG TAB PO PRN (00:35)
[2018-01-26 08:13] LABS: ABS Basophils 0 10^3/ul (0-0.2); ABS Eosinophils 0.2 10^3/ul (0-0.6); ABS Lymphocytes 0.7 10^3/ul (1.0-4.8); ABS Monocytes 0.3 10^3/ul (0-0.8); ABS Neutrophils 3.6 10^3/ul (1.5-7.7); ABS Nucleated RBC 0 10^3/ul; Hematocrit 25 % (42-52); Hemoglobin 8.4 g/dl (14.0-18.0); Lymphocyte % 15.5 % (25-47); Mean Corpuscular HGB Conc 34 g/dl (31-36); Mean Corpuscular Hemoglobin 32 pg (27-31); Mean Corpuscular Volume 94 fL (80-94); Mean Platelet Volume 7.6 um3 (7.4-10.4); Nucleated Red Blood Cells % 0; Platelet Count 177 10^3/ul (150-450); Red Blood Count 2.61 10^6/ul (4.0-5.4); Red Cell Distribution Width 14 % (10.5-15); White Blood Count 4.8 10^3/ul (3.5-10.8)
[2018-01-26 08:20] LABS: INR 3.83 (0.77-1.02)
[2018-01-26 08:27] LABS: EGFR Non-African American 75.6 (>60)
[2018-01-26] MEDS ORDERED: Enoxaparin(*) 30 MG/0.3 ML SYR SUBCUT SCH (09:00)
[2018-01-26] MEDS: Pramipexole TAB* 0.5 MG PO SCH ×3 (09:16→17:55)
[2018-01-26] MEDS: Amantadine LIQ* 50 MG/5 ML UDC PO SCH (09:16)
[2018-01-26] MEDS: Furosemide TAB* 20 MG PO SCH (09:17)
[2018-01-26] MEDS: Cyanocobalamin TAB* 500 MCG PO SCH (09:17)
[2018-01-26] MEDS: Potassium Chlor TAB* 10 MEQ TAB.ER PO SCH ×2 (09:17→12:13)
[2018-01-26] MEDS: Docusate CAP* 100 MG PO SCH ×2 (09:17→20:55)
[2018-01-26] MEDS: Ferrous Gluconate TAB* 324 MG TAB PO SCH ×2 (09:17→20:54)
[2018-01-26] MEDS: Omeprazole CAP* 20 MG PO SCH (09:17)
[2018-01-26] MEDS: Multivitamins/Minerals TAB PO SCH (09:17)
[2018-01-26] MEDS: Isosorbide Mononitrate ER TAB* 60 MG PO SCH (09:17)
[2018-01-26] MEDS: LEVODOPA PO SCH ×4 (09:18→20:56)
[2018-01-26] MEDS: Acetaminophen TAB* 325 MG PO PRN (09:18)
[2018-01-26] MEDS: CARBIDOPA PO SCH ×4 (09:18→20:56)
[2018-01-26] MEDS: [UNRECOGNIZED DRUG - OTHER] PO SCH ×3 (09:18→17:56)
--- NOTE | 2018-01-26 16:51 | PN ---
Progress Note Date of Service: 01/26/18 Note: RODRIGO PACE was visited. Therapy notes read and reviewed. He had a pretty good day with therapy but fatigued this evening. No complaints of chest pain or SOB. INR Supratherapeutic Current Medications: Active Medications Generic Name Dose Route Start Last Admin Trade Name Freq PRN Reason Stop Dose Admin Acetaminophen 975 mg 01/25/18 11:45 01/26/18 09:18 Tylenol Tab* PO 975 mg Q6H PRN Administration pain or fever Al Hydrox/Mg Hydrox/Simethicone 30 ml 01/25/18 11:21 Maalox Plus* PO Q6H PRN INDIGESTION Amantadine HCl 50 mg 01/26/18 09:00 01/26/18 09:16 Symmetrel Liq* PO 50 mg DAILY ARRON Administration Atorvastatin Calcium 40 mg 01/25/18 17:00 01/25/18 17:03 Lipitor* PO 40 mg 1700 ARRON Administration Carbidopa/Levodopa 1 tab 01/25/18 21:00 01/25/18 21:04 Carbidopa-Levo Er 25-100 Tab PO 1 tab BEDTIME ARRON Administration Cyanocobalamin 1,000 mcg 01/26/18 09:00 01/26/18 09:17 Vitamin B12 Tab* PO 1,000 mcg DAILY ARRON Administration Docusate Sodium 100 mg 01/25/18 21:00 01/26/18 09:17 Colace Cap* PO 100 mg BID ARRON Administration Ferrous Gluconate 324 mg 01/26/18 09:00 01/26/18 09:17 Fergon Tab* PO 324 mg 0900,2100 ARRON Administration Furosemide 20 mg 01/26/18 09:00 01/26/18 09:17 Lasix Tab* PO 20 mg MoWeFr@0900 ARRON Administration Gabapentin 600 mg 01/25/18 21:00 01/25/18 21:03 Neurontin Cap(*) PO 600 mg BEDTIME ARRON Administration Isosorbide Mononitrate 60 mg 01/26/18 09:00 01/26/18 09:17 Imdur Er Tab* PO 60 mg DAILY ARRON Administration Magnesium Hydroxide 30 ml 01/25/18 11:21 Milk Of Magnesia Liq* PO Q6H PRN CONSTIPATION Multivitamins/Minerals 1 tab 01/26/18 09:00 01/26/18 09:17 Theragran/Minerals Tab* PO 1 tab DAILY ARRON Administration Nitroglycerin 0.4 mg 01/25/18 11:40 Nitroglycerin Tab 0.4 Mg* SL .EVERY 5 MIN PRN PRN chest pain Pto: (Carbidopa, 200 mg 01/25/18 12:00 01/26/18 12:47 Levodopa, PO 200 mg Entacaponestalevo 0800,1200,1800 ARRON Administration 200 Mg) Omeprazole 20 mg 01/26/18 09:00 01/26/18 09:17 Prilosec Cap* PO 20 mg DAILY ARRON Administration Oxycodone HCl 5 mg 01/25/18 11:46 01/26/18 00:35 Roxycodone Tab* PO 5 mg Q4H PRN Administration PAIN Potassium Chloride 10 meq 01/26/18 09:00 01/26/18 12:13 Klor Con Er Tab* PO Not Given MoWeFr@0900 ARRON Pramipexole Dihydrochloride 1 mg 01/25/18 12:00 01/26/18 12:47 Mirapex Tab* PO 1 mg 0800,1200,1800 ARRON Administration Senna 2 tab 01/25/18 11:21 Senokot Tab* PO BEDTIME PRN CONSTIPATION Vital Signs: Vital Signs Temp Pulse Resp BP Pulse Ox 98.5 F 85 18 106/49 92 01/26/18 15:18 01/26/18 15:18 01/26/18 15:18 01/26/18 15:18 01/26/18 15:18 Lab Results: Laboratory Results - last 24 hr 01/26/18 01/26/18 01/26/18 07:49 07:49 07:49 WBC 4.8 RBC 2.61 L Hgb 8.4 L Hct 25 L MCV 94 MCH 32 H MCHC 34 RDW 14 Plt Count 177 MPV 7.6 Neut % (Auto) 74.2 Lymph % (Auto) 15.5 L [place] % (Auto) 5.8 Eos % (Auto) 4.0 Baso % (Auto) 0.5 Absolute Neuts (auto) 3.6 Absolute Lymphs (auto) 0.7 L Absolute Monos (auto) 0.3 Absolute Eos (auto) 0.2 Absolute Basos (auto) 0 Absolute Nucleated RBC 0 Nucleated RBC % 0 INR (Anticoag Therapy) 3.83 H Sodium 135 L Potassium 4.1 Chloride 104 Carbon Dioxide 24 Anion Gap 7 BUN 13 Creatinine 0.96 Est GFR ( Amer) 97.2 Est GFR (Non-Af Amer) 75.6 BUN/Creatinine Ratio 13.5 Glucose 89 Calcium 8.5 L Total Bilirubin 0.60 AST 54 H ALT 12 Alkaline Phosphatase 73 Total Protein 5.7 L Albumin 2.8 L Globulin 2.9 Albumin/Globulin Ratio 1.0 Exam: LUNGS: Clear bilaterally HEART: reg rhythm ABDOMEN: Soft EXTREMITIES: Right hip wound dressing C/D/I NEUROLOGIC: Alert. Muscle strength 3/5 in RLE, otherwise about 4+/5 Assessment/Plan: 1. Right THR: PT/OT. WBAT 2. Parkinson's Disease: Stalevo/Mirapex/Amantadine 3. CAD: Lasix/Lipitor/Imdur. ASA and Plavix on hold while on Coumadin 4. DVT Prophylaxis: Coumadin, on hold due to INR. 5. HTN: Imdur/Lasix 6. : Lasix 7. Advanced Directives: Full code. is HCP 8. GERD: Karlene 01/26/18 16:52
[2018-01-26] MEDS: Atorvastatin* 40 MG TAB PO SCH (17:18)
[2018-01-26] MEDS: Gabapentin CAP(*) 300 MG PO SCH (20:54)
[2018-01-27 07:12] LABS: INR 3.18 (0.77-1.02)
[2018-01-27] MEDS: Pramipexole TAB* 0.5 MG PO SCH ×3 (07:58→17:10)
[2018-01-27] MEDS: Amantadine LIQ* 50 MG/5 ML UDC PO SCH (07:59)
[2018-01-27] MEDS: [UNRECOGNIZED DRUG - OTHER] PO SCH ×3 (07:59→17:10)
[2018-01-27] MEDS: CARBIDOPA PO SCH ×4 (07:59→20:24)
[2018-01-27] MEDS: Isosorbide Mononitrate ER TAB* 60 MG PO SCH (07:59)
[2018-01-27] MEDS: LEVODOPA PO SCH ×4 (07:59→20:24)
[2018-01-27] MEDS: Cyanocobalamin TAB* 500 MCG PO SCH (07:59)
[2018-01-27] MEDS: Ferrous Gluconate TAB* 324 MG TAB PO SCH ×2 (07:59→20:22)
[2018-01-27] MEDS: Docusate CAP* 100 MG PO SCH ×2 (07:59→20:22)
[2018-01-27] MEDS: Multivitamins/Minerals TAB PO SCH (07:59)
[2018-01-27] MEDS: Omeprazole CAP* 20 MG PO SCH (08:11)
--- NOTE | 2018-01-27 12:40 | PMRUTEAM ---
PMRU: Team Meeting Current Status: Nursing: Current Status Skin Deviations [Right Hip] Incision Skin Deviation Description [ glued Right Hip] Physical Therapy: Current Status Bed Mobility Assistance Min Assist Transfer Moblility Assistance Contact Guard Transfer/Bed Mobility Rolling Walker Recommended Devices Ambulation Assistance Contact Guard Ambulation Assistive Devices Rolling Walker Number of Feet Patient 100 Ambulated Stairs Assistance Contact Guard Assist Stairs Recommended Devices Two Rails Number of Stairs 2 Occupational Therapy: Current Status Upper Body Dressing Min Assist Lower Body Dressing Max Asst Bathing Mod Assist Toileting Min Assist Toilet Transfer Min Assist Shower Transfer Min Assist Eating Ind with Adaptive Equip Rec Therapy: Current Status Summary of Assessment and RT assessment complete and pt. is aware of RT Clinical Impression services. Pt. is very talkative in leisure visits and open to continued check-ins and offers for recreational involvement. Treatment Goals Pt. will engage in leisure activities while on the unit. Treatment Plan Provide RT services and encourage involvement. Social Work: Current Status Discharge Plan return home with home care svs and family support Potential for Family Training pt's is attentive and involved Anticipated Discharge Home Destination Discharge With home care svs and family support Nutrition: Current Status Monitoring Pt seen 01/25 prior to being admitted to [facility]. Pt working with other staff when visited today. Last BM was yesterday (01/25). Assessment from 01/25 as below: Pt is s/p right STACEY on 01/22. Diet advanced to regular since. Noted pt ordered for coumadin 01/24; provided education regarding coumadin/vitamin K interaction. Per visual assessment, pt w/o obvious fat/muscle wasting. Pt reported that for the past several weeks his appetite has been decreased. He reported his UBW to be 190#, and he reported a 10 -20# wt loss. He was confused about current recorded weight of 216#. Noted weight on 01/09 to be 175#, which would represent a 15# (8%) wt loss from UBW. Recommend obtaining new standing weight as able to allow for accurate assessment of weight change. Pt did note that he believes his appetite is improving. Noted intake of 50-100% of meals since admission. Pt does not currently meet criteria for malnutrition, however due to potential weight loss, encouraged intake of protein containing foods. Pt requested to try Boost/Ensure. Will send a chocolate Ensure Enlive this afternoon at lunch and monitor acceptance. Pt is aware to request this if he would like it scheduled. Pt denied GI s/sx, such as N/V. He did report difficulty swallowing due to hx of Parkinson's disease. Pt could not identify specific foods which he has difficulty with. Per discussion, will add soft to diet order and monitor tolerance. Recommend IN [employer] evaluation as indicated. Per chart, pt w/o pressure related skin breakdown. Bowel meds ordered. Labs reviewed; recommend electrolyte repletion prn. Glucose: 133. Will monitor. Goals: Physical Therapy: Updated Goals Transfer/Bed Mobility Rolling Walker Recommended Devices Occupational Therapy: Initial Goals Goals to be Completed in (Days 7-10 days ) Upper Body Bathing Routine Modified Independent with Lower Body Bathing Routine Modified Independent with Upper Body Dressing Routine Independent Lower Body Dressing Routine Modified Independent with Toilet Hygeine and Clothing Modified Independent with Management Routine Toilet Transfer Routine Modified Independent with Tub Transfer Routine Modified Independent with Functional Transfers for ADL Modified Independent with Grooming Routine Independent Feeding Routine Modified Independent with Feeding Assistive Devices dentures Light Housekeeping Tasks Minimal Contact Assist Nutrition: Goals Intervention Goals 1. pt will tolerate least restrictive texture without s/sx difficulty swallowing 2. Intake will be adequate to maintain stable body wt (? 175-180#) 3. Pt will establish & maintain regular bowel pattern without constipation/diarrhea 4. skin will remain intact without signs of breakdown Social Work: Goals Discharge Plan return home with home care svs and family support Potential for Family Training pt's is attentive and involved Anticipated Discharge Home Destination Discharge With home care svs and family support Care Plan: Care Plan ADL's - Improve/Maintain Start: 01/26/18 15:44 Freq: DAILY Status: Active Target: Protocol: Activity Type Activity Date Activity User E-Sign Co-Sign Detail Recorded Client Recorded Date Recorded By Document 01/26/18 15:45 [id number] 01/26/18 15:45 [id number] 01/26/18 15:45 PMRU Outcome: ADL's/ADL Transfers Orders/Interventions Occupational Therapy Evaluation & Treatment Device Yes Patient to receive OT 5x/wk for 60-120 Therex min/day Self Care Management Group Therapy UE/LE ADL's with Assist Yes ADL Transfers with Assist Yes Toileting: Transfers,Clothing Management Yes ,Hygeine w/Assist Light Kitchen/Laundry w/Assist Yes Progression Toward Outcome/Goals Progressing Outcome/Goals Met Pt. is a 77 y/o male s/p R STACEY presenting with limited RLE ROM, decreased RLE strength, R THP , limited balance, and limited endurance affecting bathing, toileting, dressing and functinal transfers. Pt. completes morning ADL routine with maxA x1. Pt. will benefit from skilled OT services to maximize independence and AE training prior to d/c home. Cardiovascular- Improve/Maintain Start: 01/25/18 15:15 Freq: DAILY Status: Active Target: Protocol: Activity Type Activity Date Activity User E-Sign Co-Sign Detail Recorded Client Recorded Date Recorded By Document 01/27/18 02:28 [id number] 01/27/18 02:29 [id number] 01/27/18 02:28 PMRU Outcome: Cardiovascular Vital Signs q Shift for 48hrs Then BID Yes Daily Weight Ordered No Current Cardiovascular Outcome/Goal Maintain/ Achieve Baseline HR, BP , Perfusion Improve HR Within Prescribed Parameters Maintain/ Achieve Hemodynamic Stability Free of Abnormal Cardiac Symptoms Progression Toward Outcome/Goal Progressing DVT Prophylaxis- Improve/Maintain Start: 01/25/18 15:15 Freq: DAILY Status: Active Target: Protocol: Activity Type Activity Date Activity User E-Sign Co-Sign Detail Recorded Client Recorded Date Recorded By Document 01/27/18 02:28 [id number] 01/27/18 02:29 [id number] 01/27/18 02:28 PMRU Outcome: DVT Prophylaxis Outcome/Goals Remains Free of DVT Complies with DVT Prophylaxis /Treatment Demonstrates Knowledge of DVT Prevention/ Treatment TEDS Stockings on Every AM, Off at HS Progression Toward Outcome/Goals Progressing Discharge Planning - Improve/Maintain Start: 01/26/18 12:05 Freq: DAILY Status: Active Target: Protocol: Activity Type Activity Date Activity User E-Sign Co-Sign Detail Recorded Client Recorded Date Recorded By Document 01/27/18 02:28 [id number] 01/27/18 02:29 [id number] 01/27/18 02:28 PMRU Outcome: Discharge Planning Update Patient Family No Education-Improve/Maintain Start: 01/25/18 15:15 Freq: DAILY Status: Active Target: Protocol: Activity Type Activity Date Activity User E-Sign Co-Sign Detail Recorded Client Recorded Date Recorded By Document 01/27/18 02:28 [id number] 01/27/18 02:29 [id number] 01/27/18 02:28 PMRU Outcome: Education Outcome/Goals Encourage Questions Progression Toward Outcome/Goals Progressing Medication Administration Start: 01/26/18 12:05 Freq: DAILY Status: Active Target: Protocol: Activity Type Activity Date Activity User E-Sign Co-Sign Detail Recorded Client Recorded Date Recorded By Document 01/26/18 15:56 [id number] [email or web address] 01/26/18 15:56 [id number] 01/26/18 15:56 PMRU Outcome: Medication Administration Assess Patient Knowledge/Teach Med Yes Education for all Meds Outcome/Goals Patient Independent with Medication Administration at Home Progression Towards Outcome/Goals Progressing Is Patient Going Home on Lovenox? No Neurological- Improve/Maintain Start: 01/25/18 15:15 Freq: DAILY Status: Active Target: Protocol: Activity Type Activity Date Activity User E-Sign Co-Sign Detail Recorded Client Recorded Date Recorded By Document 01/27/18 02:28 [id number] [id number] 01/27/18 02:29 [id number] 01/27/18 02:28 PMRU Outcome: Neurological Weakness/Aphasia Weakness Outcome/Goals Maintain/ Improve Strength/ROM Progression Toward Outcome/Goals Progressing Pain/Comfort- Improve/Maintain Start: 01/25/18 15:15 Freq: DAILY Status: Active Target: Protocol: Activity Type Activity Date Activity User E-Sign Co-Sign Detail Recorded Client Recorded Date Recorded By Document 01/27/18 02:28 [id number] [id number] 01/27/18 02:29 [id number] 01/27/18 02:28 PMRU Outcome: Pain/Comfort Outcome/Goals Demonstrates Knowledge and Use of Available Comfort Measures Achieves Acceptable Comfort/Pain Level as Determined by Patient/Condit Progression Toward Outcome/Goals Progressing Outcome/Goals Met Comment pt denies pain Safety- Improve/Maintain Start: 01/25/18 15:15 Freq: DAILY Status: Active Target: Protocol: Activity Type Activity Date Activity User E-Sign Co-Sign Detail Recorded Client Recorded Date Recorded By Document 01/27/18 02:28 [id number] 01/27/18 02:29 [id number] 01/27/18 02:28 PMRU Outcome: Safety Outcome/Goals Remain Free of Injury or Harm Prevent Falls/ Injury Progression Toward Outcome/Goals Progressing Outcome/Goals Met Comment PA in place Skin- Improve/Maintain Start: 01/25/18 15:15 Freq: DAILY Status: Active Target: Protocol: Activity Type Activity Date Activity User E-Sign Co-Sign Detail Recorded Client Recorded Date Recorded By Document 01/27/18 02:28 [id number] 01/27/18 02:29 [id number] 01/27/18 02:28 PMRU Outcome: Skin Skin Risk Level Low Skin Orders Dressing Change Turn/Position q2hr While in Bed Outcome/Goals Free from Decubitus Surgical Incisions Healing Progression Toward Outcome/Goals Progressing Medicine Note: Length of Stay: 1 week Anticipated Discharge Destination: Home Tentative Discharge Date: 02/03/18 Discharged to: Home
--- NOTE | 2018-01-27 16:03 | PN ---
Progress Note Date of Service: 01/27/18 Note: RODRIGO PACE was visited. Therapy notes read and reviewed. He was discussed in interdisciplinary team rounds. He is moving pretty well. No complaints otherwise. INR down to 3.18. Will restart Warfarin Current Medications: Active Medications Generic Name Dose Route Start Last Admin Trade Name Freq PRN Reason Stop Dose Admin Acetaminophen 975 mg 01/25/18 11:45 01/26/18 09:18 Tylenol Tab* PO 975 mg Q6H PRN Administration pain or fever Al Hydrox/Mg Hydrox/Simethicone 30 ml 01/25/18 11:21 Maalox Plus* PO Q6H PRN INDIGESTION Amantadine HCl 50 mg 01/26/18 09:00 01/27/18 07:59 Symmetrel Liq* PO 50 mg DAILY ARRON Administration Atorvastatin Calcium 40 mg 01/25/18 17:00 01/26/18 17:18 Lipitor* PO 40 mg 1700 [facility] Administration Carbidopa/Levodopa 1 tab 01/25/18 21:00 01/26/18 20:56 Carbidopa-Levo Er 25-100 Tab PO 1 tab BEDTIME ARRON Administration Cyanocobalamin 1,000 mcg 01/26/18 09:00 01/27/18 07:59 Vitamin B12 Tab* PO 1,000 mcg DAILY AR[facility] Administration Docusate Sodium 100 mg 01/25/18 21:00 01/27/18 07:59 Colace Cap* PO 100 mg BID ARRON Administration Ferrous Gluconate 324 mg 01/26/18 09:00 01/27/18 07:59 Fergon Tab* PO 324 mg 0900,2100 AR[facility] Administration Furosemide 20 mg 01/26/18 09:00 01/26/18 09:17 Lasix Tab* PO 20 mg MoWeFr@0900 ARRON Administration Gabapentin 600 mg 01/25/18 21:00 01/26/18 20:54 Neurontin Cap(*) PO 600 mg BEDTIME ARRON Administration Isosorbide Mononitrate 60 mg 01/26/18 09:00 01/27/18 07:59 Imdur Er Tab* PO 60 mg DAILY ARRON Administration Magnesium Hydroxide 30 ml 01/25/18 11:21 Milk Of Magnesia Liq* PO Q6H PRN CONSTIPATION Multivitamins/Minerals 1 tab 01/26/18 09:00 01/27/18 07:59 Theragran/Minerals Tab* PO 1 tab DAILY ARRON Administration Nitroglycerin 0.4 mg 01/25/18 11:40 Nitroglycerin Tab 0.4 Mg* SL .EVERY 5 MIN PRN PRN chest pain Pto: (Carbidopa, 200 mg 01/25/18 12:00 01/27/18 15:10 Levodopa, PO 200 mg Entacaponestalevo 0800,1200,1800 ARRON Administration 200 Mg) Omeprazole 20 mg 01/26/18 09:00 01/27/18 08:11 Prilosec Cap* PO 20 mg DAILY ARRON Administration Oxycodone HCl 5 mg 01/25/18 11:46 01/26/18 00:35 Roxycodone Tab* PO 5 mg Q4H PRN Administration PAIN Potassium Chloride 10 meq 01/26/18 09:00 01/26/18 12:13 Klor Con Er Tab* PO Not Given MoWeFr@0900 [facility] Pramipexole Dihydrochloride 1 mg 01/25/18 12:00 01/27/18 15:10 Mirapex Tab* PO 1 mg 0800,1200,1800 [facility] Administration Senna 2 tab 01/25/18 11:21 Senokot Tab* PO BEDTIME PRN CONSTIPATION Warfarin Sodium 1 mg 01/27/18 17:00 Coumadin Tab(*) PO DAILY@1700 [facility] Protocol Vital Signs: Vital Signs Temp Pulse Resp BP Pulse Ox 98.6 F 82 20 128/62 97 01/27/18 05:00 01/27/18 08:00 01/27/18 08:00 01/27/18 08:00 01/27/18 08:00 Lab Results: Laboratory Results - last 24 hr 01/27/18 06:47 INR (Anticoag Therapy) 3.18 H Exam: LUNGS: Clear bilaterally HEART: reg rhythm ABDOMEN: Soft EXTREMITIES: Right hip wound dressing C/D/I NEUROLOGIC: Alert. Muscle strength 3/5 in RLE, otherwise about 4+/5 Assessment/Plan: 1. Right THR: PT/OT. WBAT 2. Parkinson's Disease: Stalevo/Mirapex/Amantadine 3. CAD: Lasix/Lipitor/Imdur. ASA and Plavix on hold while on Coumadin 4. DVT Prophylaxis: Coumadin, 1 mg tonight, follow INR. 5. HTN: Imdur/Lasix 6. : Lasix 7. Advanced Directives: Full code. is HCP 8. GERD: Prilosec 01/27/18 16:04
[2018-01-27] MEDS: Atorvastatin* 40 MG TAB PO SCH (17:10)
[2018-01-27] MEDS: Warfarin TAB(*) 1 MG PO SCH (17:10)
[2018-01-27] MEDS: Gabapentin CAP(*) 300 MG PO SCH (20:22)
[2018-01-27] MEDS: Acetaminophen TAB* 325 MG PO PRN (20:22)
[2018-01-28 06:12] LABS: INR 2.72 (0.77-1.02)
[2018-01-28] MEDS: Omeprazole CAP* 20 MG PO SCH (08:18)
[2018-01-28] MEDS: CARBIDOPA PO SCH ×4 (08:18→20:52)
[2018-01-28] MEDS: [UNRECOGNIZED DRUG - OTHER] PO SCH ×3 (08:18→17:05)
[2018-01-28] MEDS: LEVODOPA PO SCH ×4 (08:18→20:52)
[2018-01-28] MEDS: Multivitamins/Minerals TAB PO SCH (08:18)
[2018-01-28] MEDS: Isosorbide Mononitrate ER TAB* 60 MG PO SCH (08:19)
[2018-01-28] MEDS: Furosemide TAB* 20 MG PO SCH (08:19)
[2018-01-28] MEDS: Potassium Chlor TAB* 10 MEQ TAB.ER PO SCH (08:19)
[2018-01-28] MEDS: Docusate CAP* 100 MG PO SCH ×2 (08:19→20:51)
[2018-01-28] MEDS: Pramipexole TAB* 0.5 MG PO SCH ×3 (08:20→17:04)
[2018-01-28] MEDS: Cyanocobalamin TAB* 500 MCG PO SCH (08:20)
[2018-01-28] MEDS: Ferrous Gluconate TAB* 324 MG TAB PO SCH ×2 (08:20→20:49)
[2018-01-28] MEDS: Acetaminophen TAB* 325 MG PO PRN (08:21)
[2018-01-28] MEDS: Amantadine LIQ* 50 MG/5 ML UDC PO SCH (08:21)
[2018-01-28] MEDS: oxyCODONE TAB* 5 MG TAB PO PRN (13:04)
[2018-01-28] MEDS: Atorvastatin* 40 MG TAB PO SCH (17:01)
[2018-01-28] MEDS: Warfarin TAB(*) 1 MG PO SCH (17:01)
--- NOTE | 2018-01-28 20:07 | PN ---
Progress Note Date of Service: 01/28/18 Note: RODRIGO PACE was visited. Therapy notes read and reviewed. Some concern about his Amantadine dose. At home he took 60 mg (5 mL of syrup) once a day. Here, he is on 50 mg daily. This is ok. INR drifting down, may need 2 mg of Coumadin Current Medications: Active Medications Generic Name Dose Route Start Last Admin Trade Name Freq PRN Reason Stop Dose Admin Acetaminophen 975 mg 01/25/18 11:45 01/28/18 08:21 Tylenol Tab* PO 975 mg Q6H PRN Administration pain or fever Al Hydrox/Mg Hydrox/Simethicone 30 ml 01/25/18 11:21 Maalox Plus* PO Q6H PRN INDIGESTION Amantadine HCl 50 mg 01/26/18 09:00 01/28/18 08:21 Symmetrel Liq* PO 50 mg DAILY ARRON Administration Atorvastatin Calcium 40 mg 01/25/18 17:00 01/28/18 17:01 Lipitor* PO 40 mg 1700 [facility] Administration Carbidopa/Levodopa 1 tab 01/25/18 21:00 01/27/18 20:24 Carbidopa-Levo Er 25-100 Tab PO Not Given BEDTIME ARRON Cyanocobalamin 1,000 mcg 01/26/18 09:00 01/28/18 08:20 Vitamin B12 Tab* PO 1,000 mcg DAILY ARRON Administration Docusate Sodium 100 mg 01/25/18 21:00 01/28/18 08:19 Colace Cap* PO 100 mg BID ARRON Administration Ferrous Gluconate 324 mg 01/26/18 09:00 01/28/18 08:20 Fergon Tab* PO 324 mg 0900,2100 [facility] Administration Furosemide 20 mg 01/26/18 09:00 01/28/18 08:19 Lasix Tab* PO 20 mg MoWeFr@0900 [facility] Administration Gabapentin 600 mg 01/25/18 21:00 01/27/18 20:22 Neurontin Cap(*) PO 600 mg BEDTIME ARRON Administration Isosorbide Mononitrate 60 mg 01/26/18 09:00 01/28/18 08:19 Imdur Er Tab* PO 60 mg DAILY ARRON Administration Magnesium Hydroxide 30 ml 01/25/18 11:21 Milk Of Magnesia Liq* PO Q6H PRN CONSTIPATION Multivitamins/Minerals 1 tab 01/26/18 09:00 01/28/18 08:18 Theragran/Minerals Tab* PO 1 tab DAILY ARRON Administration Nitroglycerin 0.4 mg 01/25/18 11:40 Nitroglycerin Tab 0.4 Mg* SL .EVERY 5 MIN PRN PRN chest pain Pto: (Carbidopa, 200 mg 01/25/18 12:00 01/28/18 17:05 Levodopa, PO 200 mg Entacaponestalevo 0800,1200,1800 ARRON Administration 200 Mg) Omeprazole 20 mg 01/26/18 09:00 01/28/18 08:18 Prilosec Cap* PO 20 mg DAILY ARRON Administration Oxycodone HCl 5 mg 01/25/18 11:46 01/28/18 13:04 Roxycodone Tab* PO 5 mg Q4H PRN Administration PAIN Potassium Chloride 10 meq 01/26/18 09:00 01/28/18 08:19 Klor Con Er Tab* PO 10 meq MoWeFr@0900 [facility] Administration Pramipexole Dihydrochloride 1 mg 01/25/18 12:00 01/28/18 17:04 Mirapex Tab* PO 1 mg 0800,1200,1800 [facility] Administration Senna 2 tab 01/25/18 11:21 Senokot Tab* PO BEDTIME PRN CONSTIPATION Warfarin Sodium 1 mg 01/27/18 17:00 01/28/18 17:01 Coumadin Tab(*) PO 1 mg DAILY@1700 AR[facility] Administration Protocol Vital Signs: Vital Signs Temp Pulse Resp BP Pulse Ox 97.8 F 90 22 105/53 99 01/28/18 16:06 01/28/18 16:06 01/28/18 16:06 01/28/18 16:06 01/28/18 17:30 Lab Results: Laboratory Results - last 24 hr 01/28/18 05:45 INR (Anticoag Therapy) 2.72 H Exam: LUNGS: Clear bilaterally HEART: reg rhythm ABDOMEN: Soft EXTREMITIES: Right hip wound dressing C/D/I NEUROLOGIC: Alert. Muscle strength 3/5 in RLE, otherwise about 4+/5 Assessment/Plan: 1. Right THR: PT/OT. WBAT 2. Parkinson's Disease: Stalevo/Mirapex/Amantadine 3. CAD: Lasix/Lipitor/Imdur. ASA and Plavix on hold while on Coumadin 4. DVT Prophylaxis: Coumadin, 1 mg tonight, follow INR. 5. HTN: Imdur/Lasix 6. : Lasix 7. Advanced Directives: Full code. is HCP 8. GERD: Karlene 01/28/18 20:07
[2018-01-28] MEDS: Gabapentin CAP(*) 300 MG PO SCH (20:50)
[2018-01-29] MEDS: Pramipexole TAB* 0.5 MG PO SCH ×3 (08:25→17:52)
[2018-01-29] MEDS: CARBIDOPA PO SCH ×4 (08:26→21:20)
[2018-01-29] MEDS: [UNRECOGNIZED DRUG - OTHER] PO SCH ×3 (08:26→17:53)
[2018-01-29] MEDS: LEVODOPA PO SCH ×4 (08:26→21:20)
[2018-01-29] MEDS: oxyCODONE TAB* 5 MG TAB PO PRN ×2 (08:30→12:40)
[2018-01-29] MEDS: Omeprazole CAP* 20 MG PO SCH (08:31)
[2018-01-29] MEDS: Cyanocobalamin TAB* 500 MCG PO SCH (08:31)
[2018-01-29] MEDS: Docusate CAP* 100 MG PO SCH ×2 (08:32→21:20)
[2018-01-29] MEDS: Multivitamins/Minerals TAB PO SCH (08:32)
[2018-01-29] MEDS: Isosorbide Mononitrate ER TAB* 60 MG PO SCH (08:35)
[2018-01-29] MEDS: Ferrous Gluconate TAB* 324 MG TAB PO SCH ×2 (08:35→21:20)
[2018-01-29] MEDS: Amantadine LIQ* 50 MG/5 ML UDC PO SCH (12:36)
--- NOTE | 2018-01-29 16:34 | PN ---
Progress Note Date of Service: 01/29/18 Note: RODRIGO PACE was visited. Therapy notes read and reviewed. He feels better today. His amantadine dose remains 50 mg. INR rising. Will change Coumadin to Q 48 hours Current Medications: Active Medications Generic Name Dose Route Start Last Admin Trade Name Freq PRN Reason Stop Dose Admin Acetaminophen 975 mg 01/25/18 11:45 01/28/18 08:21 Tylenol Tab* PO 975 mg Q6H PRN Administration pain or fever Al Hydrox/Mg Hydrox/Simethicone 30 ml 01/25/18 11:21 Maalox Plus* PO Q6H PRN INDIGESTION Amantadine HCl 50 mg 01/26/18 09:00 01/29/18 12:36 Symmetrel Liq* PO 50 mg DAILY ARRON Administration Atorvastatin Calcium 40 mg 01/25/18 17:00 01/28/18 17:01 Lipitor* PO 40 mg 1700 AR[facility] Administration Carbidopa/Levodopa 1 tab 01/25/18 21:00 01/28/18 20:52 Carbidopa-Levo Er 25-100 Tab PO 1 tab BEDTIME ARRON Administration Cyanocobalamin 1,000 mcg 01/26/18 09:00 01/29/18 08:31 Vitamin B12 Tab* PO 1,000 mcg DAILY ARRON Administration Docusate Sodium 100 mg 01/25/18 21:00 01/29/18 08:32 Colace Cap* PO 100 mg BID ARRON Administration Ferrous Gluconate 324 mg 01/26/18 09:00 01/29/18 08:35 Fergon Tab* PO 324 mg 0900,2100 AR[facility] Administration Furosemide 20 mg 01/26/18 09:00 01/28/18 08:19 Lasix Tab* PO 20 mg MoWeFr@0900 [facility] Administration Gabapentin 600 mg 01/25/18 21:00 01/28/18 20:50 Neurontin Cap(*) PO 600 mg BEDTIME ARRON Administration Isosorbide Mononitrate 60 mg 01/26/18 09:00 01/29/18 08:35 Imdur Er Tab* PO 60 mg DAILY ARRON Administration Magnesium Hydroxide 30 ml 01/25/18 11:21 Milk Of Magnesia Liq* PO Q6H PRN CONSTIPATION Multivitamins/Minerals 1 tab 01/26/18 09:00 01/29/18 08:32 Theragran/Minerals Tab* PO 1 tab DAILY AR[facility] Administration Nitroglycerin 0.4 mg 01/25/18 11:40 Nitroglycerin Tab 0.4 Mg* SL .EVERY 5 MIN PRN PRN chest pain Pto: (Carbidopa, 200 mg 01/25/18 12:00 01/29/18 12:38 Levodopa, PO 200 mg Entacaponestalevo 0800,1200,1800 AR[facility] Administration 200 Mg) Omeprazole 20 mg 01/26/18 09:00 01/29/18 08:31 Prilosec Cap* PO 20 mg DAILY ARRON Administration Oxycodone HCl 5 mg 01/25/18 11:46 01/29/18 12:40 Roxycodone Tab* PO 5 mg Q4H PRN Administration PAIN Potassium Chloride 10 meq 01/26/18 09:00 01/28/18 08:19 Klor Con Er Tab* PO 10 meq MoWeFr@0900 [facility] Administration Pramipexole Dihydrochloride 1 mg 01/25/18 12:00 01/29/18 12:36 Mirapex Tab* PO 1 mg 0800,1200,1800 [facility] Administration Senna 2 tab 01/25/18 11:21 Senokot Tab* PO BEDTIME PRN CONSTIPATION Warfarin Sodium 1 mg 01/30/18 17:00 Coumadin Tab(*) PO Q48H [facility] Protocol Vital Signs: Vital Signs Temp Pulse Resp BP Pulse Ox 98.3 F 80 22 95/44 95 01/29/18 15:43 01/29/18 15:43 01/29/18 15:43 01/29/18 15:43 01/29/18 15:43 Lab Results: Laboratory Results - last 24 hr 01/29/18 05:55 INR (Anticoag Therapy) 3.00 H Exam: LUNGS: Clear bilaterally HEART: reg rhythm ABDOMEN: Soft EXTREMITIES: Right hip wound dressing C/D/I NEUROLOGIC: Alert. Muscle strength 3/5 in RLE, otherwise about 4+/5 Assessment/Plan: 1. Right THR: PT/OT. WBAT 2. Parkinson's Disease: Stalevo/Mirapex/Amantadine 3. CAD: Lasix/Lipitor/Imdur. ASA and Plavix on hold while on Coumadin 4. DVT Prophylaxis: Coumadin, 1 mg Q 48 hr, none tonight, follow INR. 5. HTN: Imdur/Lasix 6. : Lasix 7. Advanced Directives: Full code. is HCP 8. GERD: Alsealyse 01/29/18 16:35
[2018-01-29] MEDS: Atorvastatin* 40 MG TAB PO SCH (17:52)
[2018-01-29] MEDS: Gabapentin CAP(*) 300 MG PO SCH (21:20)
[2018-01-30 06:51] LABS: INR 2.11 (0.77-1.02)
[2018-01-30] MEDS: LEVODOPA PO SCH ×4 (08:06→20:45)
[2018-01-30] MEDS: CARBIDOPA PO SCH ×4 (08:06→20:45)
[2018-01-30] MEDS: [UNRECOGNIZED DRUG - OTHER] PO SCH ×3 (08:06→17:39)
[2018-01-30] MEDS: Pramipexole TAB* 0.5 MG PO SCH ×3 (08:07→17:39)
[2018-01-30] MEDS: Amantadine LIQ* 50 MG/5 ML UDC PO SCH (09:01)
[2018-01-30] MEDS: Cyanocobalamin TAB* 500 MCG PO SCH (09:02)
[2018-01-30] MEDS: Omeprazole CAP* 20 MG PO SCH (09:03)
[2018-01-30] MEDS: oxyCODONE TAB* 5 MG TAB PO PRN ×2 (09:03→12:45)
[2018-01-30] MEDS: Multivitamins/Minerals TAB PO SCH (09:04)
[2018-01-30] MEDS: Docusate CAP* 100 MG PO SCH ×2 (09:04→20:45)
[2018-01-30] MEDS: Furosemide TAB* 20 MG PO SCH (09:04)
[2018-01-30] MEDS: Potassium Chlor TAB* 10 MEQ TAB.ER PO SCH (09:04)
[2018-01-30] MEDS: Ferrous Gluconate TAB* 324 MG TAB PO SCH ×2 (09:05→21:18)
[2018-01-30] MEDS: Isosorbide Mononitrate ER TAB* 60 MG PO SCH (09:06)
--- NOTE | 2018-01-30 16:41 | PN ---
Progress Note Date of Service: 01/30/18 Note: RODRIGO PACE was visited. Therapy notes read and reviewed. He has a little more trouble with tremors today but says he is anxious. Otherwise doing well. INR fell. Current Medications: Active Medications Generic Name Dose Route Start Last Admin Trade Name Freq PRN Reason Stop Dose Admin Acetaminophen 975 mg 01/25/18 11:45 01/28/18 08:21 Tylenol Tab* PO 975 mg Q6H PRN Administration pain or fever Al Hydrox/Mg Hydrox/Simethicone 30 ml 01/25/18 11:21 Maalox Plus* PO Q6H PRN INDIGESTION Amantadine HCl 50 mg 01/26/18 09:00 01/30/18 09:01 Symmetrel Liq* PO 50 mg DAILY ARRON Administration Atorvastatin Calcium 40 mg 01/25/18 17:00 01/29/18 17:52 Lipitor* PO 40 mg 1700 ARRON Administration Carbidopa/Levodopa 1 tab 01/25/18 21:00 01/29/18 21:20 Carbidopa-Levo Er 25-100 Tab PO 1 tab BEDTIME ARRON Administration Cyanocobalamin 1,000 mcg 01/26/18 09:00 01/30/18 09:02 Vitamin B12 Tab* PO 1,000 mcg DAILY ARRON Administration Docusate Sodium 100 mg 01/25/18 21:00 01/30/18 09:04 Colace Cap* PO 100 mg BID ARRON Administration Ferrous Gluconate 324 mg 01/26/18 09:00 01/30/18 09:05 Fergon Tab* PO 324 mg 0900,2100 AR[facility] Administration Furosemide 20 mg 01/26/18 09:00 01/30/18 09:04 Lasix Tab* PO 20 mg MoWeFr@0900 [facility] Administration Gabapentin 600 mg 01/25/18 21:00 01/29/18 21:20 Neurontin Cap(*) PO 600 mg BEDTIME ARRON Administration Isosorbide Mononitrate 60 mg 01/26/18 09:00 01/30/18 09:06 Imdur Er Tab* PO 60 mg DAILY ARRON Administration Magnesium Hydroxide 30 ml 01/25/18 11:21 Milk Of Magnesia Liq* PO Q6H PRN CONSTIPATION Multivitamins/Minerals 1 tab 01/26/18 09:00 01/30/18 09:04 Theragran/Minerals Tab* PO 1 tab DAILY ARRON Administration Nitroglycerin 0.4 mg 01/25/18 11:40 Nitroglycerin Tab 0.4 Mg* SL .EVERY 5 MIN PRN PRN chest pain Pto: (Carbidopa, 200 mg 01/25/18 12:00 01/30/18 12:33 Levodopa, PO 200 mg Entacaponestalevo 0800,1200,1800 ARRON Administration 200 Mg) Omeprazole 20 mg 01/26/18 09:00 01/30/18 09:03 Prilosec Cap* PO 20 mg DAILY ARRON Administration Oxycodone HCl 5 mg 01/25/18 11:46 01/30/18 12:45 Roxycodone Tab* PO 5 mg Q4H PRN Administration PAIN Potassium Chloride 10 meq 01/26/18 09:00 01/30/18 09:04 Klor Con Er Tab* PO 10 meq MoWeFr@0900 [facility] Administration Pramipexole Dihydrochloride 1 mg 01/25/18 12:00 01/30/18 12:32 Mirapex Tab* PO 1 mg 0800,1200,1800 [facility] Administration Senna 2 tab 01/25/18 11:21 Senokot Tab* PO BEDTIME PRN CONSTIPATION Warfarin Sodium 1 mg 01/30/18 17:00 Coumadin Tab(*) PO DAILY@1700 [facility] Protocol Vital Signs: Vital Signs Temp Pulse Resp BP Pulse Ox 99.0 F 84 20 103/45 100 01/30/18 15:12 01/30/18 15:12 01/30/18 15:12 01/30/18 15:12 01/30/18 15:12 Lab Results: Laboratory Results - last 24 hr 01/30/18 06:39 INR (Anticoag Therapy) 2.11 H Exam: LUNGS: Clear bilaterally HEART: reg rhythm ABDOMEN: Soft EXTREMITIES: Right hip wound dressing C/D/I. More tremors in LEs NEUROLOGIC: Alert. Muscle strength 3/5 in right hip, otherwise about 4+/5 Assessment/Plan: 1. Right THR: PT/OT. WBAT 2. Parkinson's Disease: Stalevo/Mirapex/Amantadine 3. CAD: Lasix/Lipitor/Imdur. ASA and Plavix on hold while on Coumadin 4. DVT Prophylaxis: Coumadin, 1 mg Q 48 hr, none tonight, follow INR. 5. HTN: Imdur/Lasix 6. : Lasix 7. Advanced Directives: Full code. is HCP 8. GERD: Karlene 01/29/18 16:35
[2018-01-30] MEDS ORDERED: Warfarin TAB(*) 1 MG PO SCH (17:00)
[2018-01-30] MEDS: Atorvastatin* 40 MG TAB PO SCH (17:39)
[2018-01-30] MEDS: Warfarin TAB(*) 1 MG PO SCH (17:39)
[2018-01-30] MEDS: Gabapentin CAP(*) 300 MG PO SCH (20:45)
[2018-01-31 06:18] LABS: INR 1.64 (0.77-1.02)
[2018-01-31] MEDS: Cyanocobalamin TAB* 500 MCG PO SCH (08:28)
[2018-01-31] MEDS: Amantadine LIQ* 50 MG/5 ML UDC PO SCH (08:29)
[2018-01-31] MEDS: Pramipexole TAB* 0.5 MG PO SCH ×3 (08:29→17:23)
[2018-01-31] MEDS: Omeprazole CAP* 20 MG PO SCH (08:30)
[2018-01-31] MEDS: Multivitamins/Minerals TAB PO SCH (08:30)
[2018-01-31] MEDS: Isosorbide Mononitrate ER TAB* 60 MG PO SCH (08:31)
[2018-01-31] MEDS: Ferrous Gluconate TAB* 324 MG TAB PO SCH ×2 (08:31→21:08)
[2018-01-31] MEDS: CARBIDOPA PO SCH ×4 (08:31→21:08)
[2018-01-31] MEDS: [UNRECOGNIZED DRUG - OTHER] PO SCH ×3 (08:31→17:23)
[2018-01-31] MEDS: Docusate CAP* 100 MG PO SCH ×2 (08:31→21:08)
[2018-01-31] MEDS: LEVODOPA PO SCH ×4 (08:31→21:08)
[2018-01-31] MEDS: oxyCODONE TAB* 5 MG TAB PO PRN (12:13)
--- NOTE | 2018-01-31 16:20 | PN ---
Progress Note Date of Service: 01/31/18 Note: RODRIGO PACE was visited. Therapy notes read and reviewed. He still has more tremors in his legs. He feels like he may be exercising too much Current Medications: Active Medications Generic Name Dose Route Start Last Admin Trade Name Freq PRN Reason Stop Dose Admin Acetaminophen 975 mg 01/25/18 11:45 01/28/18 08:21 Tylenol Tab* PO 975 mg Q6H PRN Administration pain or fever Al Hydrox/Mg Hydrox/Simethicone 30 ml 01/25/18 11:21 Maalox Plus* PO Q6H PRN INDIGESTION Amantadine HCl 50 mg 01/26/18 09:00 01/31/18 08:29 Symmetrel Liq* PO 50 mg DAILY ARRON Administration Atorvastatin Calcium 40 mg 01/25/18 17:00 01/30/18 17:39 Lipitor* PO 40 mg 1700 ARRON Administration Carbidopa/Levodopa 1 tab 01/25/18 21:00 01/30/18 20:45 Carbidopa-Levo Er 25-100 Tab PO 1 tab BEDTIME ARRON Administration Cyanocobalamin 1,000 mcg 01/26/18 09:00 01/31/18 08:28 Vitamin B12 Tab* PO 1,000 mcg DAILY ARRON Administration Docusate Sodium 100 mg 01/25/18 21:00 01/31/18 08:31 Colace Cap* PO 100 mg BID ARRON Administration Ferrous Gluconate 324 mg 01/26/18 09:00 01/31/18 08:31 Fergon Tab* PO 324 mg 0900,2100 ARRON Administration Furosemide 20 mg 01/26/18 09:00 01/30/18 09:04 Lasix Tab* PO 20 mg MoWeFr@0900 ARRON Administration Gabapentin 600 mg 01/25/18 21:00 01/30/18 20:45 Neurontin Cap(*) PO 600 mg BEDTIME ARRON Administration Isosorbide Mononitrate 60 mg 01/26/18 09:00 01/31/18 08:31 Imdur Er Tab* PO 60 mg DAILY ARRON Administration Magnesium Hydroxide 30 ml 01/25/18 11:21 Milk Of Magnesia Liq* PO Q6H PRN CONSTIPATION Multivitamins/Minerals 1 tab 01/26/18 09:00 01/31/18 08:30 Theragran/Minerals Tab* PO 1 tab DAILY ARRON Administration Nitroglycerin 0.4 mg 01/25/18 11:40 Nitroglycerin Tab 0.4 Mg* SL .EVERY 5 MIN PRN PRN chest pain Pto: (Carbidopa, 200 mg 01/25/18 12:00 01/31/18 12:05 Levodopa, PO 200 mg Entacaponestalevo 0800,1200,1800 ARRON Administration 200 Mg) Omeprazole 20 mg 01/26/18 09:00 01/31/18 08:30 Prilosec Cap* PO 20 mg DAILY ARRON Administration Oxycodone HCl 5 mg 01/25/18 11:46 01/31/18 12:13 Roxycodone Tab* PO 5 mg Q4H PRN Administration PAIN Potassium Chloride 10 meq 01/26/18 09:00 01/30/18 09:04 Klor Con Er Tab* PO 10 meq MoWeFr@0900 ARRON Administration Pramipexole Dihydrochloride 1 mg 01/25/18 12:00 01/31/18 12:05 Mirapex Tab* PO 1 mg 0800,1200,1800 ARRON Administration Senna 2 tab 01/25/18 11:21 Senokot Tab* PO BEDTIME PRN CONSTIPATION Warfarin Sodium 1 mg 01/30/18 17:00 01/30/18 17:39 Coumadin Tab(*) PO 1 mg DAILY@1700 ARRON Administration Protocol Vital Signs: Vital Signs Temp Pulse Resp BP Pulse Ox 97.7 F 71 18 103/48 96 01/31/18 06:04 01/31/18 06:04 01/31/18 14:48 01/31/18 06:04 01/31/18 08:00 Lab Results: Laboratory Results - last 24 hr 01/31/18 05:55 INR (Anticoag Therapy) 1.64 H Exam: LUNGS: Clear bilaterally HEART: reg rhythm ABDOMEN: Soft EXTREMITIES: Right hip wound dressing C/D/I. Tremors in LEs NEUROLOGIC: Alert. Muscle strength 3/5 in right hip, otherwise about 4+/5 Assessment/Plan: 1. Right THR: PT/OT. WBAT 2. Parkinson's Disease: Stalevo/Mirapex/Amantadine 3. CAD: Lasix/Lipitor/Imdur. ASA and Plavix on hold while on Coumadin 4. DVT Prophylaxis: Coumadin, 1 mg Q 48 hr, none tonight, follow INR. 5. HTN: Imdur/Lasix 6. : Lasix 7. Advanced Directives: Full code. is HCP 8. GERD: Alsealyse 01/31/18 16:21
[2018-01-31] MEDS: Atorvastatin* 40 MG TAB PO SCH (17:23)
[2018-01-31] MEDS: Warfarin TAB(*) 1 MG PO SCH (17:23)
[2018-01-31] MEDS: Gabapentin CAP(*) 300 MG PO SCH (21:07)
[2018-02-01 06:06] LABS: INR 1.37 (0.77-1.02)
[2018-02-01] MEDS: Pramipexole TAB* 0.5 MG PO SCH ×3 (08:22→17:37)
[2018-02-01] MEDS: Docusate CAP* 100 MG PO SCH ×2 (08:23→20:51)
[2018-02-01] MEDS: Ferrous Gluconate TAB* 324 MG TAB PO SCH ×2 (08:23→20:51)
[2018-02-01] MEDS: Omeprazole CAP* 20 MG PO SCH (08:24)
[2018-02-01] MEDS: CARBIDOPA PO SCH ×4 (08:24→20:52)
[2018-02-01] MEDS: Isosorbide Mononitrate ER TAB* 60 MG PO SCH (08:24)
[2018-02-01] MEDS: Multivitamins/Minerals TAB PO SCH (08:24)
[2018-02-01] MEDS: Cyanocobalamin TAB* 500 MCG PO SCH (08:24)
[2018-02-01] MEDS: LEVODOPA PO SCH ×4 (08:24→20:52)
[2018-02-01] MEDS: [UNRECOGNIZED DRUG - OTHER] PO SCH ×3 (08:24→17:38)
[2018-02-01] MEDS: Amantadine LIQ* 50 MG/5 ML UDC PO SCH (08:25)
[2018-02-01] MEDS: Acetaminophen TAB* 325 MG PO PRN (11:38)
--- NOTE | 2018-02-01 15:02 | PN ---
Progress Note Date of Service: 02/01/18 Note: RODRIGO PACE was visited. Nursing notes read and reviewed. Tremors are a little better today. Otherwise, no complaints. INR has fallen Current Medications: Active Medications Generic Name Dose Route Start Last Admin Trade Name Freq PRN Reason Stop Dose Admin Acetaminophen 975 mg 01/25/18 11:45 02/01/18 11:38 Tylenol Tab* PO 975 mg Q6H PRN Administration pain or fever Al Hydrox/Mg Hydrox/Simethicone 30 ml 01/25/18 11:21 Maalox Plus* PO Q6H PRN INDIGESTION Amantadine HCl 50 mg 01/26/18 09:00 02/01/18 08:25 Symmetrel Liq* PO 50 mg DAILY ARRON Administration Atorvastatin Calcium 40 mg 01/25/18 17:00 01/31/18 17:23 Lipitor* PO 40 mg 1700 ARRON Administration Carbidopa/Levodopa 1 tab 01/25/18 21:00 01/31/18 21:08 Carbidopa-Levo Er 25-100 Tab PO 1 tab BEDTIME ARRON Administration Cyanocobalamin 1,000 mcg 01/26/18 09:00 02/01/18 08:24 Vitamin B12 Tab* PO 1,000 mcg DAILY ARRON Administration Docusate Sodium 100 mg 01/25/18 21:00 02/01/18 08:23 Colace Cap* PO 100 mg BID ARRON Administration Ferrous Gluconate 324 mg 01/26/18 09:00 02/01/18 08:23 Fergon Tab* PO 324 mg 0900,2100 ARRON Administration Furosemide 20 mg 01/26/18 09:00 01/30/18 09:04 Lasix Tab* PO 20 mg MoWeFr@0900 ARRON Administration Gabapentin 600 mg 01/25/18 21:00 01/31/18 21:07 Neurontin Cap(*) PO 600 mg BEDTIME ARRON Administration Isosorbide Mononitrate 60 mg 01/26/18 09:00 02/01/18 08:24 Imdur Er Tab* PO 60 mg DAILY ARRON Administration Magnesium Hydroxide 30 ml 01/25/18 11:21 Milk Of Magnesia Liq* PO Q6H PRN CONSTIPATION Multivitamins/Minerals 1 tab 01/26/18 09:00 02/01/18 08:24 Theragran/Minerals Tab* PO 1 tab DAILY ARRON Administration Nitroglycerin 0.4 mg 01/25/18 11:40 Nitroglycerin Tab 0.4 Mg* SL .EVERY 5 MIN PRN PRN chest pain Pto: (Carbidopa, 200 mg 01/25/18 12:00 02/01/18 11:36 Levodopa, PO 200 mg Entacaponestalevo 0800,1200,1800 ARRON Administration 200 Mg) Omeprazole 20 mg 01/26/18 09:00 02/01/18 08:24 Prilosec Cap* PO 20 mg DAILY ARRON Administration Oxycodone HCl 5 mg 01/25/18 11:46 01/31/18 12:13 Roxycodone Tab* PO 5 mg Q4H PRN Administration PAIN Potassium Chloride 10 meq 01/26/18 09:00 01/30/18 09:04 Klor Con Er Tab* PO 10 meq MoWeFr@0900 ARRON Administration Pramipexole Dihydrochloride 1 mg 01/25/18 12:00 02/01/18 11:36 Mirapex Tab* PO 1 mg 0800,1200,1800 ARRON Administration Senna 2 tab 01/25/18 11:21 Senokot Tab* PO BEDTIME PRN CONSTIPATION Warfarin Sodium 1 mg 01/30/18 17:00 01/31/18 17:23 Coumadin Tab(*) PO 1 mg DAILY@1700 ARRON Administration Protocol Vital Signs: Vital Signs Temp Pulse Resp BP Pulse Ox 98.7 F 75 18 107/50 100 02/01/18 05:47 02/01/18 05:47 02/01/18 11:39 02/01/18 05:47 02/01/18 08:00 Lab Results: Laboratory Results - last 24 hr 02/01/18 05:30 INR (Anticoag Therapy) 1.37 H Exam: LUNGS: Clear bilaterally HEART: reg rhythm ABDOMEN: Soft EXTREMITIES: Right hip wound dressing C/D/I. Tremors in LEs better today NEUROLOGIC: Alert. Muscle strength 3/5 in right hip, otherwise about 4+/5 Assessment/Plan: 1. Right THR: PT/OT. WBAT 2. Parkinson's Disease: Stalevo/Mirapex/Amantadine 3. CAD: Lasix/Lipitor/Imdur. ASA and Plavix on hold while on Coumadin 4. DVT Prophylaxis: Coumadin, 1 mg QDAY , will increase to 2 mg follow INR. 5. HTN: Imdur/Lasix 6. : Lasix 7. Advanced Directives: Full code. is HCP 8. GERD: Prilosec 02/01/18 15:03
[2018-02-01] MEDS ORDERED: Warfarin TAB(*) 1 MG PO SCH (15:04)
[2018-02-01] MEDS: Atorvastatin* 40 MG TAB PO SCH (17:37)
[2018-02-01] MEDS: Gabapentin CAP(*) 300 MG PO SCH (20:51)
[2018-02-02 05:59] LABS: ABS Basophils 0 10^3/ul (0-0.2); ABS Eosinophils 0.2 10^3/ul (0-0.6); ABS Lymphocytes 0.8 10^3/ul (1.0-4.8); ABS Monocytes 0.4 10^3/ul (0-0.8); ABS Neutrophils 3.8 10^3/ul (1.5-7.7); ABS Nucleated RBC 0 10^3/ul; Eosinophil % 3.6 % (0-6); Hematocrit 24 % (42-52); Hemoglobin 8.4 g/dl (14.0-18.0); Mean Corpuscular HGB Conc 34 g/dl (31-36); Mean Corpuscular Hemoglobin 32 pg (27-31); Mean Corpuscular Volume 93 fL (80-94); Mean Platelet Volume 7.1 um3 (7.4-10.4); Nucleated Red Blood Cells % 0; Platelet Count 318 10^3/ul (150-450); Red Blood Count 2.63 10^6/ul (4.0-5.4); Red Cell Distribution Width 14 % (10.5-15); White Blood Count 5.3 10^3/ul (3.5-10.8)
[2018-02-02 06:00] LABS: INR 1.26 (0.77-1.02)
[2018-02-02 06:12] LABS: EGFR Non-African American 91.9 (>60)
[2018-02-02] MEDS: Amantadine LIQ* 50 MG/5 ML UDC PO SCH (08:07)
[2018-02-02] MEDS: Multivitamins/Minerals TAB PO SCH (08:07)
[2018-02-02] MEDS: Potassium Chlor TAB* 10 MEQ TAB.ER PO SCH (08:07)
[2018-02-02] MEDS: LEVODOPA PO SCH ×4 (08:07→20:02)
[2018-02-02] MEDS: Ferrous Gluconate TAB* 324 MG TAB PO SCH ×2 (08:07→20:03)
[2018-02-02] MEDS: [UNRECOGNIZED DRUG - OTHER] PO SCH ×3 (08:07→17:02)
[2018-02-02] MEDS: CARBIDOPA PO SCH ×4 (08:07→20:02)
[2018-02-02] MEDS: Cyanocobalamin TAB* 500 MCG PO SCH (08:07)
[2018-02-02] MEDS: Omeprazole CAP* 20 MG PO SCH (08:07)
[2018-02-02] MEDS: Isosorbide Mononitrate ER TAB* 60 MG PO SCH (08:08)
[2018-02-02] MEDS: Furosemide TAB* 20 MG PO SCH (08:08)
[2018-02-02] MEDS: Pramipexole TAB* 0.5 MG PO SCH ×3 (08:08→17:02)
[2018-02-02] MEDS: Docusate CAP* 100 MG PO SCH ×2 (08:08→20:03)
[2018-02-02] MEDS: Acetaminophen TAB* 325 MG PO PRN ×2 (12:09→19:00)
[2018-02-02] MEDS: Atorvastatin* 40 MG TAB PO SCH (17:00)
[2018-02-02] MEDS ORDERED: Warfarin TAB(*) 2.5 MG PO SCH (17:00)
--- NOTE | 2018-02-02 17:18 | PN ---
Progress Note Date of Service: 02/02/18 Note: RODRIGO PACE was visited. Therapy notes read and reviewed. He is ready for discharge. INR still falling. Will order 2.5 mg of coumadin Current Medications: Active Medications Generic Name Dose Route Start Last Admin Trade Name Freq PRN Reason Stop Dose Admin Acetaminophen 975 mg 01/25/18 11:45 02/02/18 12:09 Tylenol Tab* PO 975 mg Q6H PRN Administration pain or fever Al Hydrox/Mg Hydrox/Simethicone 30 ml 01/25/18 11:21 Maalox Plus* PO Q6H PRN INDIGESTION Amantadine HCl 50 mg 01/26/18 09:00 02/02/18 08:07 Symmetrel Liq* PO 50 mg DAILY ARRON Administration Atorvastatin Calcium 40 mg 01/25/18 17:00 02/02/18 17:00 Lipitor* PO 40 mg 1700 ARRON Administration Carbidopa/Levodopa 1 tab 01/25/18 21:00 02/01/18 20:52 Carbidopa-Levo Er 25-100 Tab PO 1 tab BEDTIME ARRON Administration Cyanocobalamin 1,000 mcg 01/26/18 09:00 02/02/18 08:07 Vitamin B12 Tab* PO 1,000 mcg DAILY ARRON Administration Docusate Sodium 100 mg 01/25/18 21:00 02/02/18 08:08 Colace Cap* PO 100 mg BID ARRON Administration Ferrous Gluconate 324 mg 01/26/18 09:00 02/02/18 08:07 Fergon Tab* PO 324 mg 0900,2100 ARRON Administration Furosemide 20 mg 01/26/18 09:00 02/02/18 08:08 Lasix Tab* PO 20 mg MoWeFr@0900 ARRON Administration Gabapentin 600 mg 01/25/18 21:00 02/01/18 20:51 Neurontin Cap(*) PO 600 mg BEDTIME ARRON Administration Isosorbide Mononitrate 60 mg 01/26/18 09:00 02/02/18 08:08 Imdur Er Tab* PO 60 mg DAILY ARRON Administration Magnesium Hydroxide 30 ml 01/25/18 11:21 Milk Of Magnesia Liq* PO Q6H PRN CONSTIPATION Multivitamins/Minerals 1 tab 01/26/18 09:00 02/02/18 08:07 Theragran/Minerals Tab* PO 1 tab DAILY ARRON Administration Nitroglycerin 0.4 mg 01/25/18 11:40 Nitroglycerin Tab 0.4 Mg* SL .EVERY 5 MIN PRN PRN chest pain Pto: (Carbidopa, 200 mg 01/25/18 12:00 02/02/18 17:02 Levodopa, PO 200 mg Entacaponestalevo 0800,1200,1800 ARRON Administration 200 Mg) Omeprazole 20 mg 01/26/18 09:00 02/02/18 08:07 Prilosec Cap* PO 20 mg DAILY ARRON Administration Oxycodone HCl 5 mg 01/25/18 11:46 01/31/18 12:13 Roxycodone Tab* PO 5 mg Q4H PRN Administration PAIN Potassium Chloride 10 meq 01/26/18 09:00 02/02/18 08:07 Klor Con Er Tab* PO 10 meq MoWeFr@0900 ARRON Administration Pramipexole Dihydrochloride 1 mg 01/25/18 12:00 02/02/18 17:02 Mirapex Tab* PO 1 mg 0800,1200,1800 ARRON Administration Senna 2 tab 01/25/18 11:21 Senokot Tab* PO BEDTIME PRN CONSTIPATION Warfarin Sodium 2.5 mg 02/02/18 17:00 02/02/18 17:01 Coumadin Tab(*) PO 2.5 mg DAILY@1700 ARRON Administration Protocol Vital Signs: Vital Signs Temp Pulse Resp BP Pulse Ox 98.2 F 78 16 101/44 97 02/02/18 15:50 02/02/18 15:50 02/02/18 15:50 02/02/18 15:50 02/02/18 15:50 Lab Results: Laboratory Results - last 24 hr 02/02/18 02/02/18 02/02/18 05:35 05:35 05:35 WBC 5.3 RBC 2.63 L Hgb 8.4 L Hct 24 L MCV 93 MCH 32 H MCHC 34 RDW 14 Plt Count 318 MPV 7.1 L Neut % (Auto) 72.5 Lymph % (Auto) 16.0 L Will % (Auto) 7.2 H Eos % (Auto) 3.6 Baso % (Auto) 0.7 Absolute Neuts (auto) 3.8 Absolute Lymphs (auto) 0.8 L Absolute Monos (auto) 0.4 Absolute Eos (auto) 0.2 Absolute Basos (auto) 0 Absolute Nucleated RBC 0 Nucleated RBC % 0 INR (Anticoag Therapy) 1.26 H Sodium 137 L Potassium 4.2 Chloride 105 Carbon Dioxide 26 Anion Gap 6 BUN 15 Creatinine 0.81 Est GFR ( Amer) 118.2 Est GFR (Non-Af Amer) 91.9 BUN/Creatinine Ratio 18.5 Glucose 96 Calcium 8.7 Total Bilirubin 0.40 AST 70 H ALT 50 Alkaline Phosphatase 96 Total Protein 6.1 L Albumin 3.1 L Globulin 3.0 Albumin/Globulin Ratio 1.0 Exam: LUNGS: Clear bilaterally HEART: reg rhythm ABDOMEN: Soft EXTREMITIES: Right hip wound dressing C/D/I. Tremors in LEs better today NEUROLOGIC: Alert. Muscle strength 3/5 in right hip, otherwise about 4+/5 Assessment/Plan: 1. Right THR: PT/OT. WBAT 2. Parkinson's Disease: Stalevo/Mirapex/Amantadine 3. CAD: Lasix/Lipitor/Imdur. ASA and Plavix on hold while on Coumadin 4. DVT Prophylaxis: Coumadin, 1 mg QDAY , will increase to 2.5 mg follow INR. 5. HTN: Imdur/Lasix 6. : Lasix 7. Advanced Directives: Full code. is HCP 8. GERD: Prilosec 02/02/18 17:18
[2018-02-02] MEDS: Gabapentin CAP(*) 300 MG PO SCH (20:02)
[2018-02-03 06:10] VITALS: BP 129/60
[2018-02-03] MEDS: CARBIDOPA PO SCH (07:37)
[2018-02-03] MEDS: Amantadine LIQ* 50 MG/5 ML UDC PO SCH (07:37)
[2018-02-03] MEDS: Pramipexole TAB* 0.5 MG PO SCH (07:37)
[2018-02-03] MEDS: LEVODOPA PO SCH (07:37)
[2018-02-03] MEDS: Cyanocobalamin TAB* 500 MCG PO SCH (07:37)
[2018-02-03] MEDS: [UNRECOGNIZED DRUG - OTHER] PO SCH (07:37)
[2018-02-03] MEDS: Omeprazole CAP* 20 MG PO SCH (07:38)
[2018-02-03] MEDS: Docusate CAP* 100 MG PO SCH (07:38)
[2018-02-03] MEDS: Ferrous Gluconate TAB* 324 MG TAB PO SCH (07:38)
[2018-02-03] MEDS: Multivitamins/Minerals TAB PO SCH (07:38)
[2018-02-03] MEDS: Isosorbide Mononitrate ER TAB* 60 MG PO SCH (07:38)
[2018-02-03] MEDS: Acetaminophen TAB* 325 MG PO PRN (08:00)
[2018-02-03 08:53] LABS: INR 1.39 (0.77-1.02)
--- NOTE | 2018-02-04 08:35 | DS ---
CC: Dr. John Dozier DISCHARGE SUMMARY: DATE OF ADMISSION: 01/25/18 DATE OF DISCHARGE: 02/03/18 DISCHARGE DIAGNOSES: 1. Right subcapital femoral neck fracture. 2. Right total hip replacement. 3. Parkinson's disease. 4. Hypertension. 5. Coronary artery disease. 6. Chronic right shoulder pain. HISTORY OF ILLNESS AND HOSPITAL COURSE: For complete history of events leading up to his rehab stay, please see the history and physical dictated by Dr. Renee New on 01/25/18. While on the reha b unit, the patient remained medically stable. 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 He was maintained on Coumadin for DVT prophylaxis. He was otherwise medically stable . He was seen by Physical Therapy and Occupational Therapy and made good gains with both disciplines. With physical therapy, at the time of admission, the patient required min assist for transfer, cont act guard for ambulation. He was able to ambulate about 45 feet with occupational therapy at the shayy e of admission. The patient required min assist for upper body dressing, max assist for lower body d ressing, mod assist for toileting, min assist for toiler transfers, mod assist for bathing. By the t librado of discharge, he was independent transfers, independent ambulating 150 feet, independent toiletin g, independent dressing, independent toilet transfers, and independent tub transfers using the tub tr ansfer bench. The patient was discharged to home with his on 02/03/18. DISCHARGE DIET: Regular. DISCHARGE MEDICATIONS: 1. Amantadine 50 mg daily. 2. Lipitor 40 mg daily. 3. Stalevo 200 mg at 8 a.m., 12 noon, and 6 p.m. 4. Imdur 60 mg daily. 5. Neurontin 600 mg at bedtime. 6. Lasix 20 mg on Mondays, Wednesdays, and Fridays. 7. Ferrous gluconate 325 mg daily. 8. Carbidopa/levodopa ER 25/100 one tab at bedtime. 9. Potassium 10 mEq Mondays, Wednesdays, and Fridays. SERVICES AFTER DISCHARGE: Through [facility], he will have home nursing, home physical therapy, a nd a home health aide. Follow up with his primary care doctor, Dr. John Dozier, as well as with Dr Black Shook, his orthopedic surgeon. [id number]/[facility] #: [id number]
== END 2018-02-03 11:30 | disposition home health service (06) | DRG 561 ==
LOC: PMRU 12:37
PROVIDERS: ADMIT Physical Medicine & Rehabilitation; ATTEND Physical Medicine & Rehabilitation
PROC: F07Z5ZZ Bed Mobility Treatment (ICD-10-PCS; principal; 2018-01-25)
PROC: F07Z9ZZ Gait Training/Functional Ambulation Treatment (ICD-10-PCS; 2018-01-25)
PROC: F07Z8ZZ Transfer Training Treatment (ICD-10-PCS; 2018-01-25)
PROC: F08Z0ZZ Bathing/Showering Techniques Treatment (ICD-10-PCS; 2018-01-25)
PROC: F08Z1ZZ Dressing Techniques Treatment (ICD-10-PCS; 2018-01-25)
PROC: F08Z3ZZ Feeding/Eating Treatment (ICD-10-PCS; 2018-01-25)
DX: Z47.1 Aftercare following joint replacement surgery (principal); Z96.641 Presence of right artificial hip joint; G20 Parkinson's disease; I25.10 Atherosclerotic heart disease of native coronary artery without angina pectoris; I11.9 Hypertensive heart disease without heart failure; M25.511 Pain in right shoulder; S72.011D Unspecified intracapsular fracture of right femur, subsequent encounter for closed fracture with routine healing; W18.30XD Fall on same level, unspecified, subsequent encounter; E78.5 Hyperlipidemia, unspecified; I35.0 Nonrheumatic aortic (valve) stenosis; Z95.5 Presence of coronary angioplasty implant and graft; R06.00 Dyspnea, unspecified; R13.10 Dysphagia, unspecified; K21.9 Gastro-esophageal reflux disease without esophagitis; S46.211D Strain of muscle, fascia and tendon of other parts of biceps, right arm, subsequent encounter; X58.XXXD Exposure to other specified factors, subsequent encounter; R33.8 Other retention of urine; Z79.1 Long term (current) use of non-steroidal anti-inflammatories (NSAID); Z79.02 Long term (current) use of antithrombotics/antiplatelets; Z79.82 Long term (current) use of aspirin; Z79.891 Long term (current) use of opiate analgesic; Z79.899 Other long term (current) drug therapy; Z88.2 Allergy status to sulfonamides; Z88.8 Allergy status to other drugs, medicaments and biological substances; Z82.49 Family history of ischemic heart disease and other diseases of the circulatory system; Z80.42 Family history of malignant neoplasm of prostate
CPT/HCPCS: 36415; 80053; 85025; 85610; A9270-GY; J1650

== ENCOUNTER 2021-03-15 06:11 | Observation (INO) ==
[~2021-03-15 06:11] MED LIST changes: -Buffered Lidocaine 0.9% SYRIN* 5 ML/SYR SYRINGE INTRADERM ONE; +Buffered Lidocaine 1% SYRIN 1 ml INTRADERM ONE; +Lactated Ringers 1000 ml BAG 1,000 ML IV SCH; -Sodium Citrate/Citric Acid* 15 ML UDC PO ONE
[2021-03-15 06:43] LABS: Hematocrit 35 % (42-52); Hemoglobin 12.1 g/dL (14.0-18.0); Mean Corpuscular HGB Conc 35 g/dL (31-36); Mean Corpuscular Hemoglobin 34 pg (27-31); Mean Corpuscular Volume 96 fL (80-94); Platelet Count 145 10^3/uL (150-450); Red Cell Distribution Width 14 % (10-15); White Blood Count 4.7 10^3/uL (3.5-10.8)
[2021-03-15] MEDS ORDERED: Lidocaine 2% PF 5 ML VIAL ONE (06:52)
[2021-03-15] MEDS ORDERED: Propofol 10 MG/ML 20 ML BTL ONE (06:52)
[2021-03-15] MEDS ORDERED: Rocuronium 50 mg VIAL 10 mg/ml 5 ml VIAL (50 mg) ONE (06:52)
[2021-03-15] MEDS ORDERED: Midazolam 2 mg/2 ml VIAL 1 mg/ml 2 ml VIAL (2 mg) ONE (06:53)
[2021-03-15] MEDS ORDERED: fentaNYL 100 mcg/2 ml 50 MCG/ML VIAL ONE ×2 (06:53→11:10)
[2021-03-15 06:57] LABS: Activated Partial Thrombo Time 32.9 seconds (26.0-38.0); INR 1.12 (0.86-1.15)
[2021-03-15] MEDS ORDERED: ceFAZolin 2 GM in NS PREMIX 2 GM/100 ML BAG IVPB ONE (07:01)
[2021-03-15] MEDS ORDERED: Buffered Lidocaine 1% SYRIN 1 ml INTRADERM ONE (07:08)
[2021-03-15] MEDS ORDERED: ROPIVACAINE 5 MG/ML 30 ML BTL (0.5%) ONE (07:35)
[2021-03-15] MEDS ORDERED: Naloxone 0.4 mg VIAL 0.4 mg/ml 1 ml VIAL IV PRN (08:46)
[2021-03-15] MEDS ORDERED: DiMENhydriNATE IV 50 mg/ml 1 ml VIAL IV PUSH PRN (08:46)
[2021-03-15] MEDS ORDERED: diPHENhydraMINE IV 50 MG/ML 1 ml VIAL (BENADRYL) IV PRN ×2 (08:46→10:35)
[2021-03-15] MEDS ORDERED: Acetaminophen IV 1 GM/100ML 100 ML IV ONE (08:47)
[2021-03-15] MEDS ORDERED: HYDROmorphone 1 MG/1 ML SYRINGE ONE (08:47)
[2021-03-15] MEDS ORDERED: Ropivacaine 5 MG/ML 20 ML VIAL 0.5% (100 MG) ONE (10:19)
[2021-03-15] MEDS ORDERED: Morphine 2 MG/ML SYRINGE IV PRN (10:35)
[2021-03-15] MEDS ORDERED: Ondansetron 4 mg VIAL 2 MG/ML 2 ml VIAL IV PRN (10:35)
[2021-03-15] MEDS ORDERED: Lactulose 30 ml UDC PO PRN (10:35)
[2021-03-15] MEDS ORDERED: diPHENhydraMINE 25 mg TAB PO PRN (10:35)
[2021-03-15] MEDS ORDERED: Magnesium Hydroxide LIQ 30 ML UDC PO PRN (10:35)
[2021-03-15] MEDS ORDERED: Ondansetron ODT 4 mg TAB 4 MG TAB PO PRN (10:35)
[2021-03-15] MEDS: fentaNYL 100 mcg/2 ml 50 MCG/ML VIAL IV PRN ×2 (11:11→11:30)
[2021-03-15] MEDS: Lactated Ringers 1000 ml BAG 1,000 ML IV SCH (12:20)
[2021-03-15] MEDS: Carbidopa/Levodop 25/100 MG TAB PO SCH ×2 (13:02→17:22)
[2021-03-15] MEDS: CMCS: Entacapone 200 mg TAB (NF) PO SCH ×2 (13:30→17:22)
[2021-03-15] MEDS ORDERED: Carbidopa/Levodop 25/100 MG TAB PO SCH (14:00)
[2021-03-15] MEDS: ceFAZolin 1 GM ADVAN 1 GM in NS 0.9% 50 ML 50 ML IVPB SCH (17:24)
[2021-03-15] MEDS: Magnesium Hydroxide LIQ 30 ML UDC PO SCH (20:57)
[2021-03-15] MEDS: Isosorbide Mononit ER 60mg TAB PO SCH (20:59)
[2021-03-15] MEDS ORDERED: Carbidopa/Levodop CR 50/200 TAB.CR PO SCH (21:00)
[2021-03-16] MEDS: ceFAZolin 1 GM ADVAN 1 GM in NS 0.9% 50 ML 50 ML IVPB SCH ×2 (00:25→09:55)
[2021-03-16] MEDS: Lactated Ringers 1000 ml BAG 1,000 ML IV SCH (00:25)
[2021-03-16 06:22] LABS: Hematocrit 29 % (42-52); Hemoglobin 9.7 g/dL (14.0-18.0); Platelet Count 102 10^3/uL (150-450)
[2021-03-16 06:23] LABS: Mean Platelet Volume 8.2 fL (7.4-10.4)
[2021-03-16 06:51] LABS: CO2 Carbon Dioxide 23 mmol/L (22-32); Calcium 8.1 mg/dL (8.6-10.3); Chloride 105 mmol/L (101-111); Sodium 135 mmol/L (135-145)
[2021-03-16 06:52] LABS: Anion Gap 7 mmol/L (2-11)
[2021-03-16 06:57] LABS: Blood Urea Nitrogen 18 mg/dL (6-24); EGFR African American 72.9 (>60); EGFR Non-African American 60.3 (>60); Glucose 132 mg/dL (70-100)
[2021-03-16 07:56] VITALS: BP 96/39
[2021-03-16] MEDS: CMCS: Entacapone 200 mg TAB (NF) PO SCH ×2 (07:57→11:20)
[2021-03-16] MEDS: Carbidopa/Levodop 25/100 MG TAB PO SCH ×2 (07:57→11:20)
[2021-03-16] MEDS ORDERED: Potassium Chlor 10 meq TAB PO SCH (09:00)
[2021-03-16] MEDS ORDERED: Vitamin THERAPEUTIC TAB PO SCH (09:00)
[2021-03-16] MEDS ORDERED: Amantadine SOLN ORALSYR 10 mg/ml PO SCH (09:00)
[2021-03-16] MEDS ORDERED: Amantadine LIQ 50 mg/5 ml UDC PO SCH (09:00)
[2021-03-16] MEDS: Isosorbide Mononit ER 60mg TAB PO SCH (09:55)
[2021-03-16] MEDS: Magnesium Hydroxide LIQ 30 ML UDC PO SCH (09:56)
== END 2021-03-16 15:00 | disposition home or self-care (01) ==
LOC: AA 06:11 → INTOOBSV 06:11 → SSU 10:35
PROVIDERS: ADMIT Orthopaedic Surgery Adult Reconstructive Orthopaedic Surgery; ATTEND Orthopaedic Surgery Adult Reconstructive Orthopaedic Surgery